=== PATIENT | female | born 1985 | race Caucasian/White ===

== ENCOUNTER 2021-12-10 21:24 | Emergency (ER) | payer OTHER, SELFPAY ==
--- NOTE | ~2021-12-10 | XR_ITS ---
XR chest 2V DATE: 12/10/2021 22:12 INDICATION: Inspiratory chest pain TECHNIQUE: PA and lateral views COMPARISON: 12/02/2019 2 view chest FINDINGS: There is minimal infiltrate or atelectasis in the lower lungs. Normal heart size. No hilar or mediastinal enlargement. No pleural effusion or pulmonary vascular con gestion or pneumothorax. IMPRESSION: Minimal infiltrate or atelectasis in the lower lungs Reviewed, dictated and finalized at location A. [place] STAFF CREDENTIALING COORDINATOR
[2021-12-10 21:43] VITALS: BP 137/78; PULSE 74; RESP 20; TEMP 36.6; O2SAT 100
--- NOTE | 2021-12-10 21:47 | ECG_ITS ---
Measurements Intervals [place] Rate: 59 P: 52 TX: 146 QRS: 30 QRSD: 86 T: 53 QT: 429 QTc: 428 Interpretive Statements SINUS BRADYCARDIA EARLY PRECORDIAL R/S TRANSITION BORDERLINE ECG Electronically Signed On 12-11-2021 6:26:19 SPRINKLER INSPECTOR by Caden Galarza D.O.
[2021-12-10 22:04] LABS: Basophils Percent Auto 0.4 % (0.2-1.2); Eosinophils Absolute Auto 0.2 K/mm3 (0-0.3); Eosinophils Percent Auto 3.1 % (0-4.4); Hematocrit 41.7 % (37.0-47.0); Hemoglobin 14.6 g/dL (12.0-15.0); Immature Granulocyte Absolute 0.01 K/mm3 (0.00-0.031); Immature Granulocyte Percent A 0.2 % (0-0.5); Lymphocytes Percent Auto 46.9 % (18.3-44.2); Mean Corpuscular Hemoglobin 30.9 pg (26-34); Mean Corpuscular Volume 88.2 fl (80-100); Mean Platelet Volume 9.4 fl (7.4-10.4); Monocytes Absolute Auto 0.6 K/mm3 (0.1-0.6); Monocytes Percent Auto 11.3 % (2.6-8.5); Neutrophils Percent Auto 38.1 % (45.5-73.1); Platelet Count Result 158 k/mm3 (150-375); Red Blood Count 4.73 M/mm3 (4.2-5.4); White Blood Count 5.1 K/mm3 (4.5-10.0)
[2021-12-10 22:14] LABS: INR 0.9; Partial Thromboplastin Time 28.3 SECONDS (22.3-36.8); Prothrombin Time 12.4 Seconds (11.1-14.7)
[2021-12-10 22:14] LABS: Alanine Aminotransferase 27 U/L (4-35); Albumin Level 4.2 g/dL (3.5-5.1); Alkaline Phosphatase 51 U/L (38-126); Anion Gap 7 mmol/L (8-16); Aspartate Amino Transferase 34 U/L (14-36); Bilirubin,Total 0.4 mg/dL (0.2-1.3); Blood Urea Nitrogen 14 mg/dL (7-17); Calcium 8.9 mg/dL (8.4-10.2); Carbon Dioxide 27 mmol/L (22-30); Chloride 103 mmol/L (98-107); Estimated CRCL calculation 90 ml/min; Estimated Glomerular Filt Rate > 60; Glucose 96 mg/dL (65-110); Lipase 19 U/L (23-300); Potassium 4.3 mmol/L (3.4-5.0); Sodium 137 mmol/L (137-145)
[2021-12-10 22:26] LABS: Troponin I < 0.012 ng/mL (0.000-0.034)
--- NOTE | 2021-12-11 01:55 | PC.NURSE ---
patient states she does not want to wait any longer and left from waiting room
== END 2021-12-11 01:58 | disposition left against medical advice (07) ==
PROVIDERS: Emergency Provider Emergency Medicine; PCP Nurse Practitioner Family
DX: U07.1 COVID-19 (principal); M54.6 Pain in thoracic spine
CPT/HCPCS: 36415; 71046; 80053; 83690; 84484; 85025; 85610; 85730; 93005; 99199

== ENCOUNTER 2024-12-16 07:48 | Outpatient (CLI) | payer OTHER, MEDICAID, SELFPAY ==
--- OUTSIDE RECORDS SUMMARY | 2024-12-17 21:25 | XMS_ITS | Clinical Summary ---
Author Organization [facility] Address [address] [place] [address] Care Team Providers Care Clinical Nursing Instructor Name Role Phone Unavailable Primary Care Provider Unavailabl e Source Comments [facility],non-owned Affiliates and Associated Physician Practices is amultiple site organization consisting of ambulatory clinics and hospital sitesin [place], [place], [place]. This disclosure is being madepursuant to the Care Everywhere program and may not contain all information available regarding this patient. 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 Immunizations Name Administration Dates Next Due Rho D Immune Globulin 10/24/2015 Social History Tobacco Use Types Packs/Day Years Used Date Smoking Tobacco: Never Assessed Sex and Gender Information Value Date Recorded Sex Assigned at Not on file Gender Identity Not on file Sexual Orientation Not on file Last Filed Vital Signs Vital Sign Reading Time Taken Comments Blood Pressure 115/70 10/24/2015 10:20 AM GEODETIC COMPUTATOR Pulse 96 10/24/2015 10:20 AM GEODETIC COMPUTATOR Temperature - - Respiratory Rate - - Oxygen Saturation - - Inhaled Oxygen Concentration - - Weight - - Height - - Body Mass Index - - Plan of Treatment Health Maintenance Due Date Last Done Comments PAP SMEAR 1985 HIV SCREENING 2000 HEPATITIS C SCREENING 09/08/2003 DTAP/TDAP/TD VACCINES (1 - Tdap) 2004 HEPATITIS B VACCINE (1 of 3 - 19+ 3-dose series) 2004 COVID-19 VACCINE (2023-2 5 season) 2024 INFLUENZA VACCINE (#1) 2024 DEPRESSION SCREENING 11/25/2024 ZOSTER VACCINE (1 of 2) 2035 HIB VACCINE Aged Out No longer eligi ble based on patient's age to complete this topic HPV VACCINE Aged Out No longer eligi ble based on patient's age to complete this topic MENINGOCOCCAL (Group B) VACCINE Aged Out No longer eligible based on patient's age to complete this topic MENINGOCOCCAL VACCINE Aged Out No allie alma eligible based on patient's age to complete this topic PNEUMOCOCCAL VACCINE Aged Out No long er eligible based on patient's age to complete this topic
--- OUTSIDE RECORDS SUMMARY | 2024-12-17 21:25 | XMS_ITS | Data Portability ---
Author Organization [facility] [employer], Main Office Address [address] [place] [address] Assessment Encounter Date Assessment Date Assessment LastModified by Organization Details LastModified Time 09/28/2024 09/28/2024 Time spent with patient included: preparing to see patient by reviewing tests, obtaining and reviewing history, medical examination and evaluation, counseling and educating the patient, ordering medications and tests, documenting clinical information in EHR, independently interpreting results and communicating results to the patient for a total of 40 minutes. [email or web address] Not available 09/28/2024 16:21:39 Plan of Treatment Reminders Order Date Submit Date Provider Last Modified By Organization Details Last Modified Time Details Appointments None recorded. Lab glycohemog lobin, total, blood 2023 024 [facility] (Lab), [address] [place], [address], 4 14:11:23 TSH, serum or plasma 2023 024 [facility] (Lab), [address] [place], [address], 4 14:11:23 T4, free, serum 2023 024 [facility] (Lab), [address] [place], [address], 4 14:11:23 lipid panel, serum 2023 024 [facility] (Lab), [address] [place], [address], 4 14:11:23 CMP, serum or plasma 2023 024 [facility] (Lab), [address] [place], [address], 4 14:11:24 vitamin B12, serum 2023 024 [facility] (Lab), [address] [place], [address], 4 14:11:24 vitamin D, 25-hydroxy , total, serum 2023 [facility] (Lab), [address] [place], [address], 4 14:11:24 growth hormone, serum 2023 024 [facility] (Lab), [address] [place], [address], 4 01:30:06 Referral weight management referral 2023 024 [facility] (Weight Loss Management), [address] [address], [place], [address], 4 08:45:15 Procedures None recorded. Surgeries None recorded. Imaging home sleep study [address] ([facility]), [address] [place], [address], 4 09:39:21 polysomnog marnie, titration study - Please call patient to schedule. 2023 024 [place] [address] [facility] ([facility] [place], [address], 5 16:36:25 Medication Orders furosemide 20 mg tablet 2023 024 [id number], [address] [place], [place], [id number], 4 12:55:18 Mounjaro 2.5 mg/0.5 mL subcutaneo us pen injector 2023 024 allison Arnold [facility] [address], [address] [place], [address], 4 15:34:09 phentermin e 37.5 mg tablet [address] [facility], [address] [place], [place], [id number], 4 08:55:43 Zepbound 2.5 mg/0.5 mL subcutaneo us pen injector [address] [facility]23504, [address] [place], [place], [id number], 14:10:27 furosemide 20 mg tablet 2023 024 [facility] #15772, [address] [place], [place], [id number], 4 09:16:33 ergocalcif wes (vitamin D2) 1,250 mcg (50,000 unit) capsule 2023 [facility] #[id number] [place], [id number], 4 09:16:34 escitalopr am 10 mg tablet 2023 024 [facility] #[id number] [place], [id number], 4 09:16:38 Patient TargetsNo targets recorded. Patient Instructions Encounter Date Encounter Id Patient Instructions Last Modified By Organization Details Last Modified Time 02/17/2024 [id number] Follow up in 3 months and as needed Mounjaro sent to pharmacy Furosemide sent to pharmacy Labs at next visit. Not available 02/17/2024 12:54:40 03/05/2024 [id number] Follow up in 3 months Medication sent to pharmacy Weigh self monthly and notify provider Not available 03/05/2024 09:05:25 05/05/2024 [id number] Follow up in 3 months Obtain labs Referral to weight loss management Not available 05/05/2024 15:45:08 08/17/2024 [id number] Follow up in 3-6 months Tests: Referral: Recommend: Influenza vaccine Tetanus vaccine Not available 08/17/2024 09:16:23 Reason for Referral Weight Management Referral f or Obesity Referring Physician: Erin Moran, Internal Medicine, Encounter Date: 05/05/2024 Results Created Date Observation Date Name Description Value Unit Range Abnormal Flag Note LastModifiedBy Organization Detail LastModifiedTime 09/28/2008/27/2024 home sleep study No observ ation record ed. [facility] [address] [place], [address], 09/28/2024 17:32:24 Result Notes None recorded. Problems Name Problem SNOMED Code Status Onset Date Resolution Date Notes Provider Name and Address Organization Details Recorded Time Lateral epicondyl itis of left humerus 22525595355 9100 Active 2021 Not Available [facility] 4 03:58:09 Vitamin D deficienc y 77474428 Active 2021 Erin Moran APRN [address] [facility] [address], [place], [address] , [facility] [employer] 4 19:24:25 Umbilical hernia 744103447 Active Not Available [facility] 4 03:58:09 Contact dermatiti s 25530531 Active Not Available [facility] 4 03:58:09 Cobalamin deficienc y 815216984 Active 2022 Erin Moran APRN [address], [place], [address] , [employer] 4 19:23:45 Generaliz ed anxiety disorder 90930161 Active 2022 Erin Moran APRN [address], [place], [address] , [employer] 4 19:23:53 Prediabet es 560068308 Completed 202203/04/2024 Erin Moran APRN [address], [place], [address] , [employer] 4 14:24:14 Obesity 195391607 Active 2022 Erin Moran APRN [address], [place], [address] , [employer] 4 19:24:08 Hyperlipi demia 49034107 Active 2022 Erin Moran APRN [address], [place], [address] , [employer] 4 19:24:12 Pain due to varicose veins of lower extremity 161271472 Active 2022 Not Available [facility] 4 03:58:09 Acne 03216941 Active 2022 Not Available [facility] 4 03:58:08 Thyroid nodule 930220576 Active [address], [place], [address] , [employer] 4 19:24:31 Thyroid nodule 469008786 Active 2022 Erin Moran APRN [address], [place], [address] , [employer] 4 19:24:31 Bilateral arthritis of knees 76247723294 15951 Active 2023 Erin Moran APRN [address] [facility] [address], [place], [address] , [facility] [employer] [facility] 09:06:09 Sleep apnea 39525644 Active [address] NP [address] [facility], [address] [address], [place], [address] , [facility] [employer] [facility] 16:11:41 Hypersomn ia 69046881 Active [address] NP [address] [facility], [address] [address], [place], [address] , [facility] [employer] [facility] 16:11:41 Hypersomn ia with sleep apnea 73817414 Active 2023 Magali Anand NP [address] [address], [place], [address] , [facility] [employer] [facility] 4 16:11:41 Notes:Medical History: Acne Anxiety Rhinitis to multiple environmental allergens IgE 30 IU/mL Eosinophils 300/uL COVID infection 11/2021 Mild elevation of right hemidiaphragm Alpha-1 antitrypsin PiMM 163 mg% Nicotine dependence Thyroid cyst Obesity with mild OSAHS, AHI = 4, 08/27/24 Hypertension EF 60% Hyperlipidemia Prediabetes Vit B12 deficiency Vit D insufficiency Left lateral epicondylitis Varicosis Procedure History: Umbilical herniorrhaphy 2015 Tubal ligation 2014 KILEY for cervical ca 2016 Cholecystectomy 2019 Occupational History: [employer] Problem Notes None recorded. Procedures Surgical History Date Name Laterality Status Provider Name and Address Organization Details Recorded Time Hernia Repair completed Not Available [facility] 01/23/2023 17:47:11 total hysterectomy completed Not Available [facility] 01/23/2023 17:47:11 ligation of bilateral fallopian tubes completed Not Available [facility] 01/23/2023 17:47:11 Cholecystectomy completed Not Available [employer] 01/23/2023 17:47:11 Imaging Results Imaging Date Name Status LastModified by [facility] Details LastModified Time 08/27/2024 home sleep study completed [facility] [address] [facility] [place], [address], 09/28/2024 17:32:24 Procedure Notes None recorded. Medical Equipment None Reported. Allergies Allergen ID Allergen Name Allergen Category Reaction Reaction Severity Criticality Documentation Date Start Date Code Code System Note Provider Name and Address Organization Details Recorded Time 82729 hydrocodo ne Not available itching Not available Not available 01/23/2023 5489 RxNorm Not Available [facility] 17:50:27 Medications Name Sig Start Date Stop Date Status Note LastModified by Organization Details LastModified Time cyclobenz aprine 10 mg tablet 04/10 completed Not Available Not Available Not Available amoxicill in 500 mg capsule 12/16 completed Not Available Not Available Not Available bupropion HCl SR 150 mg tablet,12 hr sustained -release 01/31 completed Not Available Not Available Not Available prednison e 10 mg tablet 08/13 completed Not Available Not Available Not Available nicotine 14 mg/24 hr daily transderm al patch RAY 1 PA EXT TO THE SKIN QD 01/31 completed Not Available Not Available Not Available azithromy estefania 250 mg tablet TAKE 2 TABLETS BY MOUTH FOR 1 DAY THEN TAKE 1 TABLET BY MOUTH DAILY FOR 4 DAYS 01/11 completed Not Available Not Available Not Available ibuprofen 800 mg tablet 12/16 completed Not Available Not Available Not Available nystatin 100,000 unit/gram topical ointment RAY EXT AA BID 01/31 completed Not Available Not Available Not Available fluconazo le 150 mg tablet TK 1 T PO NOW. REPEAT DOSE IN 3 DAYS 01/31 completed Not Available Not Available Not Available hydrocodo ne 5 mg-acetam inophen 325 mg tablet 12/28 completed Not Available Not Available Not Available naltrexon e 50 mg tablet 1 tablet by mouth daily active Not Available Not Available No t Available ondansetr on HCl 4 mg tablet 01/27 completed Not Available Not Available Not Available Nifedical XL 30 mg tablet,ex tended release active Not Available Not Available Not Available phentermi ne 37.5 mg tablet TAKE 1 TABLET BY MOUTH EVERY DAY IN THE MORNING 08/17 completed Not Available Not Available Not Available acetamino phen 300 mg-codein e 30 mg tablet 12/16 completed Not Available Not Available Not Available ciproflox acin 500 mg tablet TAKE 1 TABLET BY MOUTH EVERY 12 HOURS FOR 7 DAYS 02/16 completed Not Available Not Available Not Available tramadol 50 mg tablet 12/28 completed Not Available Not Available Not Available triamcino lone acetonide 0.1 % topical cream APPLY A THIN LAYER TO THE AFFECTED AREA(S) BY TOPICAL ROUTE 2 TIMES PER DAY PRN active Not Available Not Available No t Available ketorolac 10 mg tablet 01/11 completed Not Available Not Available Not Available prednison e 10 mg tablets in a dose pack Take 1 tab by mouth, 3 times a day for 3 daysTake 1 tab by mouth 2 times a day for 2 daysTake 1 tab by mouth once a day for 1 day 08/09 completed Not Available Not Available Not Available oxycodone -acetamin ophen 5 mg-325 mg tablet 01/31 completed Not Available Not Available Not Available ofloxacin 0.3 % ear drops 03/04 completed Not Available Not Available Not Available clindamyc in 1 % topical gel APPLY THIN LAYER TOPICALL Y TO THE AFFECTED AREA TWICE DAILY NEEDED 08/15 completed Not Available Not Available Not Available cyanocoba yuni (vit B-12) 500 mcg tablet Take 1 tablet every day by oral route. 02/16 completed Not Available Not Available Not Available Kenalog 10 mg/mL suspensio n for injection In office injectio n administ ered by the provider 08/09 completed [facility]: [phone] Not Available Not Available Not Available ropinirol e 2 mg tablet Take 1 tablet every day by oral route at bedtime. 03/02 completed Not Available Not Available Not Available cyanocoba yuni (vit B-12) 1,000 mcg/mL injection solution Inject 1 mL every month by subcutan eous route. 08/15 completed Not Available Not Available Not Available ferrous sulfate 325 mg (65 mg iron) tablet active Not Available Not Available Not Available hydrochlo rothiazid e 12.5 mg capsule TK 1 C PO QD 01/31 completed Not Available Not Available Not Available gabapenti n 300 mg capsule TK 1 C PO QD HS 01/31 completed Not Available Not Available Not Available furosemid e 20 mg tablet Take 1 tablet every day by oral route as directed . active Not Available Not Available No t Available sodium chloride 0.9 % intraveno us solution 50 mL by intraven . route. 08/01 completed Not Available Not Available Not Available ergocalci ferol (vitamin D2) 1,250 mcg (50,000 unit) capsule Take 1 capsule every week by oral route as directed . active Not Available Not Available No t Available dexametha sone sodium phosphate 4 mg/mL injection solution 4 mg by injectio n route. 08/01 completed Not Available Not Available Not Available ibuprofen 600 mg tablet 12/16 completed Not Available Not Available Not Available methylpre dnisolone 4 mg tablets in a dose pack FOLLOW PACKAGE DIRECTIO NS 08/15 completed Not Available Not Available Not Available albuterol sulfate HFA 90 mcg/actua tion aerosol inhaler INHALE 2 PUFFS BY MOUTH EVERY 4 HOURS NEEDED 06/28 completed Not Available Not Available Not Available Isovue-30 0 61 % intraveno us solution 100 mL by intraven . route. 08/01 completed Not Available Not Available Not Available dicyclomi ne 10 mg capsule 01/31 completed Not Available Not Available Not Available loratadin e 10 mg tablet active Not Available Not Available Not Available naproxen 500 mg tablet 12/16 completed Not Available Not Available Not Available amoxicill in 875 mg-potass ium clavulana te 125 mg tablet TK 1 T PO Q 12 H FOR 7 DAYS 01/31 completed Not Available Not Available Not Available escitalop marnie 10 mg tablet TAKE 1 TABLET BY MOUTH EVERY DAY active Not Available Not Available No t Available Ciprodex 0.3 %-0.1 % ear drops,rose pension 01/31 completed Not Available Not Available Not Available bupropion HCl XL 150 mg 24 hr tablet, extended release 1 tablet by mouth daily active Not Available Not Available No t Available nitrofura ntoin monohydra te/macroc rystals 100 mg capsule TAKE ONE CAPSULE BY MOUTH EVERY 12 HOURS FOR 5 DAYS 01/15 completed Not Available Not Available Not Available Mucus Relief DM 20 mg-400 mg tablet active Not Available Not Available No t Available Oysco 500/D 500 mg-5 mcg (200 unit) tablet TK 1 T PO BID active Not Available Not Available No t Available ropivacai ne (PF) 5 mg/mL (0.5 %) injection solution Take 10 mg by injectio n route. 08/09 completed Not Available Not Available Not Available 28 mg iron-800 mcg tablet active Not Available Not Available Not Available calcium 600 mg (as carbonate )-vitamin D3 20 mcg (800 unit) tablet active Not Available Not Available Not Available Victoza 3-Oziel 0.6 mg/0.1 mL (18 mg/3 mL) subcutane ous pen injector INJECT 1.2 MG UNDER THE SKIN ONCE EVERY DAY. 10/16 completed Not Available Not Available Not Available PrePlus 27 mg iron-1 mg tablet TK 1 T PO QD active Not Available Not Available No t Available Trulicity 1.5 mg/0.5 mL subcutane ous pen injector ADMINIST ER 1.5 MG UNDER THE SKIN EVERY WEEK 08/13 completed Not Available Not Available Not Available Trulicity 0.75 mg/0.5 mL subcutane ous pen injector ADMINIST ER 0.75 MG UNDER THE SKIN EVERY WEEK 08/17 completed Not Available Not Available Not Available Tech[employer] Pen Needle 32 gauge x 5/32 USE TO INJECT INSULIN ONCE EVERY DAY. 10/16 completed Not Available Not Available Not Available COVID-19 test specimen collectio n TEST DIRECTED 10/16 completed Not Available Not Available Not Available Trulicity 3 mg/0.5 mL subcutane ous pen injector ADMINIST ER 0.5 ML UNDER THE SKIN EVERY WEEK 02/12 completed Not Available Not Available Not Available Trulicity 4.5 mg/0.5 mL subcutane ous pen injector INJECT 4.5 MG EVERY WEEK SUBCUTAN EOUSLY 08/17 completed Not Available Not Available Not Available Mounjaro 2.5 mg/0.5 mL subcutane ous pen injector INJECT 1/2(ONE- HALF) ML SUBCUTAN EOUSLY ONCE A WEEK DIRECTED active Not Available Not Available No t Available naltrexon e 4.5 mg capsule Take 2 capsules every day by oral route as directed . 09/07 completed Not Available Not Available Not Available Zepbound 2.5 mg/0.5 mL subcutane ous pen injector Inject 0.5 mL every week by subcutan eous route as directed . 09/02 completed Denied by insuranc e Not Available Not Available Not Available Vitals Date Recorded Body height Body mass index (BMI) Body weight Heart rate Oxygen saturation Oxygen saturation in Arterial blood by Pulse oximetry Body temperature Systolic blood pressure Diastolic blood pressure Provider Name and Address Organization Details Last Updated DateTime 4 170.18 cm 34.1 kg/m2 66789.1 4 g 86 /min 98 % 98 % 97 [degF] 120 mm[Hg] 70 mm[Hg] Deonte Khan CMA [employer] 4 12:34:12 Date Recorded Body height Body mass index (BMI) Body weight Body temperature Heart rate Oxygen saturation Oxygen saturation in Arterial blood by Pulse oximetry Systolic blood pressure Diastolic blood pressure Provider Name and Address Organization Details Last Updated DateTime 4 170.18 cm 35.2 kg/m2 055323. 28 g 96 [degF] 81 /min 98 % 98 % 122 mm[Hg] 80 mm[Hg] Deonte Khan CMA [employer] 4 08:44:29 Date Recorded Body height Body mass index (BMI) Body weight Body temperature Heart rate Oxygen saturation Oxygen saturation in Arterial blood by Pulse oximetry Systolic blood pressure Diastolic blood pressure Provider Name and Address Organization Details Last Updated DateTime 4 170.18 cm 35.1 kg/m2 398084. 69 g 98 [degF] 79 /min 98 % 98 % 108 mm[Hg] 64 mm[Hg] Aliya Singh MA [employer] 4 15:33:43 Date Recorded Body height Body mass index (BMI) Body weight Body temperature Heart rate Oxygen saturation Oxygen saturation in Arterial blood by Pulse oximetry Systolic blood pressure Diastolic blood pressure Provider Name and Address Organization Details Last Updated DateTime 4 170.18 cm 35.1 kg/m2 076329. 69 g 98.7 [degF] 89 /min 96 % 96 % 106 mm[Hg] 70 mm[Hg] Aliya Singh MA [place] [facility] [employer] 4 08:45:08 Date Recorded Body height Body mass index (BMI) Body weight Heart rate Oxygen saturation Oxygen saturation in Arterial blood by Pulse oximetry Systolic blood pressure Diastolic blood pressure Provider Name and Address Organization Details Last Updated DateTime 4 170.18 cm 35.7 kg/m2 206796. 06 g 78 /min 95 % 95 % 110 mm[Hg] 68 mm[Hg] Deonte Khan CMA [place] - [email or web address] 4 16:07:11 Social History Question Answer Notes LastModified by Organization Details LastModified Time Tobacco Smoking Status Current Every Day Smoker Not Available [facility] 01/23/2023 17:47:04 Do You Have An Advance Directive? No MIGRATION.030 [id number] Information not available 01/23/2023 What Is Your Level Of Alcohol Consumption? None MIGRATION.030 [id number] Information not available 01/23/2023 What Is Your Level Of Caffeine Consumption? Moderate Coffee Twice A Day MIGRATION.030 [id number] Information not available 01/23/2023 How Much Tobacco Do You Chew? None MIGRATION.030 018786 Information not available 01/23/2023 In The 14 Days Before Symptom Onset, Have You Had Close Contact With A Laboratory-confi rmed COVID-19 While That Case Was Ill? No MIGRATION.030 [id number] Information not available 01/23/2023 In The 14 Days Before Symptom Onset, Have You Had Close Contact With A Person Who Is Under Investigation For COVID-19 While That Person Was Ill? No MIGRATION.030 [id number] Information not available 01/23/2023 What Type Of Diet Are You Following? CARBOHYDRATE Low Carb MIGRATION.030 [id number] Information not available 01/23/2023 Which Illicit Or Recreational Drugs Have You Used? None MIGRATION.030 [id number] Information not available 01/23/2023 Do You Or Have You Ever Used E-cigarettes Or Vape? Never Used Electronic Cigarettes MIGRATION.030 [id number] Information not available 01/23/2023 What Is The Highest Grade Or Level Of School You Have Completed Or The Highest Degree You Have Received? [id number] MIGRATION.030 [id number] Information not available 01/23/2023 What Is Your Occupation? None MIGRATION.0301 [id number] Information not available 01/23/2023 Have There Been Any Changes To Your Family Or Social Situation? No MIGRATION.0301 [id number] Information not available 01/23/2023 What Is The Fluoride Status Of Your Home? Unknown MIGRATION.0301 [id number] Information not available 01/23/2023 Are There Any Guns Present In Your Home? No MIGRATION.0301 [id number] Information not available 01/23/2023 Do You Use Insect Repellent Routinely? No MIGRATION.0301 [id number] Information not available 01/23/2023 Where Do You Live? [place]LevelHouse MIGRATION.0301 [id number] Information not available 01/23/2023 Do You Have A Medical Power Of Instrument Mechanic? No MIGRATION.0301 [id number] Information not available 01/23/2023 What Was The Date Of Your Most Recent Tobacco Screening? 08/17/2024 Information not available 08/17/2024 How Many Children Do You Have? 3 Information not available 05/05/2024 What Is Your Current Pack Years? 10-19packyears MIGRATION.0301 [id number] Information not available 01/23/2023 Do You Have Any Pets? Yes MIGRATION.0301 [id number] Information not available 01/23/2023 What Is Your Relationship Status? MIGRATION.0301 [id number] Information not available 01/23/2023 Do You Use Your Seat Belt Or Car Seat Routinely? Yes MIGRATION.0301 [id number] Information not available 01/23/2023 Do You Have Smoke And Carbon Monoxide Detectors In Your Home? Yes MIGRATION.0301 [id number] Information not available 01/23/2023 At What Age Did You Start Smoking Tobacco? 25 MIGRATION.0301 [id number] Information not available 01/23/2023 Are You Passively Exposed To Smoke? No MIGRATION.0301 [id number] Information not available 01/23/2023 Do You Or Have You Ever Used Smokeless Tobacco? Never Used Smokeless Tobacco MIGRATION.0301 [id number] Information not available 01/23/2023 Are There Any Smokers In Your House? No MIGRATION.0301 [id number] Information not available 01/23/2023 How Much Tobacco Do You Smoke? 0.25 PPD Less Than 1/2 Pack Information not available 08/17/2024 Do You Feel Stressed (tense, Restless, Nervous, Or Anxious, Or Unable To Sleep At Night)? AO3354-6 MIGRATION.0301 [id number] Information not available 01/23/2023 Do You Use Any Illicit Or Recreational Drugs? No MIGRATION.0301 [id number] Information not available 01/23/2023 Do You Use Sunscreen Routinely? Yes MIGRATION.0301 [id number] Information not available 01/23/2023 How Many Years Have You Smoked Tobacco? 10 MIGRATION.030 [id number] Information not available 01/23/2023 Have You Recently Traveled Abroad? No MIGRATION.030 780614 Information not available 01/23/2023 Do You Have Any Dietary Restrictions? No MIGRATION.030 623809 Information not available 01/23/2023 Do You Or Have You Ever Used Any Other Forms Of Tobacco Or Nicotine? No MIGRATION.030 [id number] Information not available 01/23/2023 Sex: Unknown Functional Status Question Answer Note LastModified by [employer] Details LastModified Time What is your exercise level? Moderate [id number] Information not available 01/23/2023 Mental Status None recorded. Family History Relationship Description Onset Age of this Age Resolved Age Notes LastModified by Organization Details LastModified Time Mother Essential hypertension Not available 11/28/2023 15:56:03 Mother Hyperthyroid ism [email or web address] Not available 02/2024 15:56:03 Mother Diabetes mellitus MIGRATION.840 [id number] Not available 01/23/2023 17:47:12 Maternal Grandmother Diabetes mellitus MIGRATION.312 [id number] Not available 01/23/2023 17:47:12 Maternal Grandmother Essential hypertension [id number] Not available 11/28/2023 15:56:03 Maternal Grandfather Hyperthyroid ism Not available 02/2024 15:56:03 Daughter Asthma [id number] Not available 01/23/2023 17:47:12 Son Asthma [id number] Not available 01/23/2023 17:47:12 Notes:THYROID ISSUES COMMON IN FAMILY Medical History Condition Response CHEST XRAY N KIDNEY STONES N MRSA N CARPAL TUNNEL SYNDROME N HISTORY OF DRUG ABUSE N RADIATION / CHEMOTHERAPY N COPD N BLOOD DISEASES N SURGERY Y MUMPS N BOWEL PROBLEMS N FAILED BACK SYNDROME N STROKE/TIA N THYROID DISEASE N LYMPHEDEMA N ULCERS N OTHER MODALITIES N CERVICALGIA N TB SKIN TEST N MYOCARDIAL INFARCTION N PARAPELGIA N OBESITY N URINARY/BLADDER/KIDNEY PROBLEMS N Increased Urination N INPATIENT PSYCH CARE N CORONARY ARTERY DISEASE (CAD) N MENIERE'S DISEASE N CAROTID STENOSIS N ADDICTION CONCERNS N Impotence N ENDOMETRIOSIS Y PARATHYROID DISEASE N PERIPHERAL VASCULAR DISEASE N MUSCLE,JOINT OR BONE PROBLEMS N DVT N STOMACH ULCERS N GASTROINTESTINAL BLEEDING N BLOOD CLOTS N PAST HISTORY OF VEHICULAR ACCIDENT N Difficulty Urinating N ASTHMA N USE OF NSAIDS N ARTERIAL INSUFFICIENCY N GI PROBLEMS Y CHF N Low Testosterone N VISION/EYE PROBLEMS N MALE HYPOGONADISM N TOURETTE'S N ANXIETY DISORDER N CHRONIC EAR INFECTIONS N BIPOLAR DISORDER N CONDUCT DISORDER N OSTEOARTHRITIS N TUBERCULOSIS N DIVERTICULITIS N SLEEP APNEA N ALLERGIES/HAYFEVER N PROSTATE N HEART ARRHYTHMIA N INSOMNIA N PAST MEDICATION HISTORY N EYE PROBLEMS N EDEMA Y HYPOTHYROIDISM N CONSTIPATION N CAROTID BLOCKAGE N MOOD DISORDER N BACK / NECK PROBLEMS N MIGRAINES N BREAST PROBLEMS N POLYCYSTIC OVARIES N FIBROMYALGIA N OSTEOPOROSIS N PERIPHERAL NEUROPATHY N APPENDICITIS N VON WILLIBRAND'S DISEASE N SEASONAL ALLERGIES N HEARTBURN / REFLUX N PLEURISY N AFIB N ADD/ADHD N Bronchoscopy N AUTISM SPECTRUM DISORDER (ASD) N SLEEP DISORDER N RETINOPATHY N HEADACHES/MIGRAINES N SLEEP STUDY N VASCULAR DISEASE N Blood Disorder N HEART DISEASE/HEART PROBLEMS N MULTIPLE SCLEROSIS N DEVELOPMENTAL OR BEHAVIORAL DISORDERS N CLAUDICATION N PULMONARY FUNCTION TEST N ANESTHESIA COMPLICATIONS N Gall Stones Y ATRIAL FIBRILLATION N PULMONARY EMBOLISM N AUTOIMMUNE DISEASE N NERVE DISEASE N BLINDNESS N RHEUMATIC FEVER N BLADDER PROBLEMS N Enlarged Prostate N OTHER # 1 N POLIO N LUNG DISEASE/DISORDER N Other # 2 N EAR OR HEARING PROBLEMS N PAST SPINAL SURGERY N SCHIZOPHRENIA N FEMALE PROBLEMS / INFECTIONS N DEPRESSION (INCLUDING POST ) N CHEST CT N RENAL INSUFFICIENCY N BENIGN PROSTATIC HYPERPLASIA N MEASLES N HYPOTENSION N GERD/NAUSEA N EXCESSIVE PERSPIRATION N ANEURYSM N USE OF BLOOD THINNERS N SKIN PROBLEMS N EMPHYSEMA N SHORTNESS OF BREATH N GASTROINTESTINAL DISORDER N PTSD N CATARACTS N CONCUSSION OR SPINAL TRAUMA N ERECTILE DYSFUNCTION N VARICOSITIES N NEUROPATHY N INFERTILITY N AIDS/HIV N FRACTURES N CHEMOTHERAPY / RADIATION N LIVER DISEASE N HYPERTENSION N Deficiency N Metal allergy N BLOOD TRANSFUSION N ANEMIA/BLOOD DISORDER N BRONCHITIS N GLAUCOMA N FOOT PROBLEM N HEART VALVE DISORDERS N CHICKENPOX N BACK INJECTIONS N INFECTIOUS DISEASE N ESRD N PAST INTERVENTIONAL PAIN MANAGEMENT HIST ORY N RHEUMATOID ARTHRITIS N HIGH CHOLESTEROL / HYPERLIPIDEMIA Y HYPERTHYROIDISM N UTI N PVD N EATING DISORDER N NEUROLOGICAL PROBLEMS N CHRONIC PAIN SYNDROME N HAVE YOU BEEN HOSPITALIZED OR SEEN IN [facility] ER IN THE PAST YEAR ? N ATHEROSCLEROSIS N BURSITIS N HERNIATED DISC N DIALYSIS N ECZEMA N HISTORY WITH COMPLICATIONS WITH ANESTHES IA ? N PSYCHOSIS N ARTHRITIS N RESPIRATORY PROBLEMS N PAST HISTORY OF FALL N DIABETES, TYPE N BAD TEETH N ENT N POST LAMINECTOMY SYNDROME N HEPATITIS / LIVER DISEASE N PULMONARY DISEASE N GOUT N ALZHEIMER'S DISEASE N PAIN Y FATIGUE N Brain Problems N HERPES N DEMENTIA N SEIZURES/EPILEPSY N PACEMAKER N DIZZINESS N HEAD TRAUMA OR INJURY N KIDNEY DISEASE N SCARLET FEVER N MENTAL DISORDER/ILLNESS N NEUROPSYCHOLOGICAL N CARDIAC ARRHYTHMIA N CANCER: SPECIFY N PNEUMONIA N Gynecological History Statement/Question Response How many live births 4 Abnormal Pap Y Date of Last Mammogram Date of Last Colonoscopy Date of LMP Sexually Active? N Menses Monthly N STIs/STDs N Date of Last Pap Date of Last Pap Smear Current Control Method Hysterectom y Obstetrics History GPAL:G 4 P 4 0 0 4 Type Value Multiple Births 0 Full Term 4 Induced 0 Spontaneous 0 Premature 0 Living 4 Ectopics 0 Total 4 Immunizations Vaccine Type Date Status Note Provider Nam e and Address Organization Details Recorded Time COVID-19, mRNA, LNP-S, PF, 100 mcg/0.5mL dose or 50 mcg/0.25mL dose 2 completed Erin Moran APRN [address], [facility] [address], [place], [address], [employer] [facility] [employer] 05/24/2024 15:27:54 influenza, intradermal, quadrivalent, preservative free 0 completed Erin Moran APRN [address], [facility] [address], [place], [address], [employer] [facility] [employer] 05/24/2024 15:27:54 MMR 7 ricci Moran APRN [address], [address], [place], [address], [employer] [facility] [employer] [facility] 05/24/2024 15:27:54 DTP 6 completed Erin Moran APRN [address], [address], [place], [address], [place] [facility] 05/24/2024 15:27:54 DTP 6 completed Erin Moran CORRECTIONAL SUPERVISOR [address], [address], [place], [address], [place] [facility] 05/24/2024 15:27:54 DTP 7 completed Erin Moran CORRECTIONAL SUPERVISOR [address], [address], [place], [address], [place] [facility] 05/24/2024 15:27:54 DTP 1 completed Erin Moran CORRECTIONAL SUPERVISOR [address], [address], [place], [address], [place] [facility] 05/24/2024 15:27:54 DTP 5 completed Erin Moran CORRECTIONAL SUPERVISOR [address], [address], [place], [address], [place] [facility] 05/24/2024 15:27:54 OPV 6 completed Erin Moran CORRECTIONAL SUPERVISOR [address], [address], [place], [address], [place] [facility] 05/24/2024 15:27:54 OPV 6 completed Erin Moran CORRECTIONAL SUPERVISOR [address], [address], [place], [address], [place] [facility] 05/24/2024 15:27:54 OPV 7 completed Erin Moran CORRECTIONAL SUPERVISOR [address], [address], [place], [address], [place] [facility] 05/24/2024 15:27:54 OPV 1 completed Erin Moran CORRECTIONAL SUPERVISOR [address], [address], [place], [address], [place] [facility] 05/24/2024 15:27:54 OPV 5 completed Erin Moran CORRECTIONAL SUPERVISOR [address], [address], [place], [address], [place] [facility] 05/24/2024 15:27:54 Past Encounters Encounter ID Performer Location Encounter Start Date Encounter Closed Date Diagnosis/Indication Diagnosis SNOMED-CT Code Diagnosis ICD10 Code Diagnosis Note [id number] [facility] [address] [address] [facility] [address] [place] [address] 01/31/2021 00:00:00 01/31/2021 14:38:26 [id number] [facility] [address] [facility] [address] [place] [address] 03/02/2021 00:00:00 03/02/2021 16:22:53 [id number] [facility] Internal [facility] [address] [facility] [address] [place] [address] 05/05/2021 00:00:00 05/05/2021 17:32:16 [id number] [facility] Internal [facility] [address] [facility] [address] [place] [address] 06/02/2021 00:00:00 06/02/2021 19:55:54 [id number] [facility] [address] [facility] [address] [place] [address] 07/07/2021 00:00:00 07/07/2021 15:50:11 [id number] [facility] Prachi nielsen [address] [facility] y , [place] [address] 10/16/2021 00:00:00 10/16/2021 14:22:16 [id number] [facility] [address] [place] [address] [address] [facility] [address] [place] [address] 12/12/2021 00:00:00 12/12/2021 17:17:18 [id number] [facility] Internal [facility] [address] [facility] [address] [place] [address] 01/11/2022 00:00:00 01/11/2022 10:44:15 [id number] [facility] [address] [facility] [address] [place] [address] 02/13/2022 00:00:00 02/13/2022 14:03:57 [id number] [facility] Internal [facility] 15 [address] [facility] [address] [address] 04/10/2022 00:00:00 04/10/2022 12:50:44 [id number] [facility] Internal [facility] [address] [facility] [address] [place] [address] 05/14/2022 00:00:00 05/14/2022 13:22:53 [id number] [facility] [place] [address] [facility] [address] [place] [address] 06/28/2022 00:00:00 06/28/2022 10:18:29 [id number] [facility] Internal [facility] [address] [facility] [address] [address] 08/13/2022 00:00:00 08/13/2022 13:22:13 [id number] [facility] [address] [place] [address] 08/15/2022 00:00:00 08/15/2022 12:43:02 [id number] [facility] [address] [place] [address] 09/03/2022 00:00:00 09/03/2022 11:28:31 [id number] [facility] [address] [facility] [address] [address] 12/17/2022 00:00:00 12/17/2022 17:38:42 [id number] [facility] Internal [facility] [address] [place] [address]., [address] [address] 01/15/2023 00:00:00 01/15/2023 17:24:21 [id number] FELISHA Awad [facility] Internal [facility] [address] [facility]., [facility] [address] [place] [address] 02/12/2023 15:39:59 02/12/2023 15:59:14 Cobalamin deficiency 814184924 E53.8 on PO supplement Generalize d anxiety disorder 94194182 F41.1 on lexapro, she is aware of side effects, risks, benefitsca ll office if any change in mood or behaviorsh e declines psychiatry referral Prediabetes 003673709 R7 3.03 on Trulicity, she is aware of side effects, risks, benefitssh e denies any personal or family history of MTC or MEN II or pancreatit isshe knows to call the office if any severe n/v or abdominal pain will see if we can get this filled for her at a mail order pharmacy Obesity 948213422 E66.9 recommend healthy, well balanced mealsfocus on lean meats, fresh vegetables , fresh fruits, whole grainsredu ce fast/proce ssed foods or eating out to no more than 1-2 times per weekaim to get 30 min of exercise most days of the week- walking is a great choicealso recommend resistance training 2-3 times per weekShe requests to continue phentermin e-she is aware side effects, risks, benefits Hyperlipidemia 88638982 E78.5 no meds, working on lifestyle Pain due t o varicose veins of lower extremity 871925940 I83.819 Now following cardiology - Dr. Petersen/Dr. Taryn pina from themContin ue compressio n stockings Intermitte nt palpitations 986920631 R00.2 now following cardiology - Dr. Coker Vitamin D deficiency 347 65426 E55.9 on supplement Acne 70232884 L70.9 on clindamyci n twice a day as neededSuns mallika recommenda tionsChang e mask daily Adult [facility] th examination 321396295 Z00.01 Depression screening 171 885385 Z13.31 [id number] FELISHA Awad [facility] Internal Med [facility] [address] [facility] [address] [place] [address] 03/19/2023 13:47:07 03/19/2023 14:04:35 Adult health examination 949387725 Z00.01 Cobalamin deficiency 190 051144 E53.8 on PO supplement Generalize d anxiety disorder 90384678 F41.1 on lexapro, she is aware of side effects, risks, benefitsca ll office if any change in mood or behaviorsh e declines psychiatry referral Prediabetes 131162296 R7 3.03 on Trulicity, she is aware of side effects, risks, benefitssh e denies any personal or family history of MTC or MEN II or pancreatit isshe knows to call the office if any severe n/v or abdominal pain Obesity 659577333 E66.9 recommend healthy, well balanced mealsfocus on lean meats, fresh vegetables , fresh fruits, whole grainsredu ce fast/proce ssed foods or eating out to no more than 1-2 times per weekaim to get 30 min of exercise most days of the week- walking is a great choicealso recommend resistance training 2-3 times per weekShe requests to continue phentermin e-she is aware side effects, risks, benefits Hyperlipidemia 66555117 E78.5 no meds, working on lifestyle Pain due t o varicose veins of lower extremity 438484822 I83.819 Now following cardiology - Dr. Petersen/Dr. Taryn pina from themContin ue compressio n stockings Intermitte nt palpitations 656667129 R00.2 now following cardiology - Dr. Coker Vitamin D deficiency 347 90344 E55.9 on supplement Acne 31611046 L70.9 on clindamyci n twice a day as neededSuns crescott recommenda tionsChang e mask daily [id number] RAUL Awad-Princess [facility] Internal Med [facility] [address] [place] [address] 04/26/2023 15:34:00 04/26/2023 15:59:28 Cobalamin deficiency 947307439 E53.8 on PO supplement Generalize d anxiety disorder 12261929 F41.1 on lexapro, she is aware of side effects, risks, benefitsca ll office if any change in mood or behaviorsh e declines psychiatry referral Prediabetes 615539143 R7 3.03 on Trulicity, she is aware of side effects, risks, benefitssh e denies any personal or family history of MTC or MEN II or pancreatit isshe knows to call the office if any severe n/v or abdominal pain Obesity 930653591 E66.9 recommend healthy, well balanced mealsfocus on lean meats, fresh vegetables , fresh fruits, whole grainsredu ce fast/proce ssed foods or eating out to no more than 1-2 times per weekaim to get 30 min of exercise most days of the week- walking is a great choicealso recommend resistance training 2-3 times per week we had a long discussion about nutrition, how to figure out TDEE, and how to work to be in a mild deficit without crash dietingrec ommend TDEEcalcul ator.net to figure out TDEE, aim to get 200-300 cals below TDEE for sustainabl e weight loss, I printed this out for her and we discussed her targetswe discussed the importance of protein, we discussed macros and how to count themthe importance of daily fitness was discussed, including the importance of resistance trainingon line nutrition resources shared with patient 30 min spent with patient, over half spent on counseling Hyperlipidemia 56380534 E78.5 no meds, working on lifestyle Pain due t o varicose veins of lower extremity 824183097 I83.819 Now following cardiology - Dr. Petersen/Dr. Taryn pina from themContin ue compressio n stockings Intermitte nt palpitations 781010687 R00.2 now following cardiology - Dr. Coker Vitamin D deficiency 347 47643 E55.9 on supplement Acne 80686039 L70.9 on clindamyci n twice a day as neededSuns creen recommenda tionsChang e mask daily [id number] Tommy Stacy MD [facility] ENT [place] [address] [place] [address] 08/08/2023 11:47:42 08/08/2023 12:21:55 Thyroid nodule 084284781 E04.1 Dysphagia 75257307 R13.1 0 [id number] FELISHA Awad [facility] Internal Med [facility] [address] [facility] [address] [place] [address] 08/15/2023 11:12:18 08/15/2023 11:40:23 Cobalamin deficiency 680609385 E53.8 on PO supplement Generalize d anxiety disorder 54320808 F41.1 on lexapro, she is aware of side effects, risks, benefitsca ll office if any change in mood or behaviorsh e declines psychiatry referral Prediabetes 821192267 R7 3.03 on Trulicity, she is aware of side effects, risks, benefitssh e denies any personal or family history of MTC or MEN II or pancreatit isshe knows to call the office if any severe n/v or abdominal pain Obesity 768811218 E66.9 recommend healthy, well balanced mealsfocus on lean meats, fresh vegetables , fresh fruits, whole grainsredu ce fast/proce ssed foods or eating out to no more than 1-2 times per weekaim to get 30 min of exercise most days of the week- walking is a great choicealso recommend resistance training 2-3 times per week Previously discussed: we had a long discussion about nutrition, how to figure out TDEE, and how to work to be in a mild deficit without crash dietingrec ommend TDEEcalcul ator.net to figure out TDEE, aim to get 200-300 cals below TDEE for sustainabl e weight loss, I printed this out for her and we discussed her targetswe discussed the importance of protein, we discussed macros and how to count themthe importance of daily fitness was discussed, including the importance of resistance trainingon line nutrition resources shared with patient Hyperlipidemia 28595793 E78.5 no meds, working on lifestyle Pain due t o varicose veins of lower extremity 205101175 I83.819 Now following cardiology - Dr. Petersen/Dr. Taryn pina from themContin ue compressio n stockings Intermitte nt palpitations 210738988 R00.2 now following cardiology - Dr. Coker Vitamin D deficiency 347 20755 E55.9 on supplement Acne 14442362 L70.9 on clindamyci n twice a day as neededSuns mallika recommenda tionsChang e mask daily Pain in pelvis 24921627 R10.2 She is negative for rebound tenderness and she is nontoxic-a ppearing todayWe discussed I think this is a low possibilit y of this being her appendix especially because the pain is more midline, has been going on for few weeks, and feels like previous cystsGet pelvic ultrasound Get appointmen t with gynStrict ER precaution s discussed- if the pain gets worse, she develops any fever, chills, vomiting she is to go to the ER Urinary symptoms 6068519 08 R39.9 Check UA now, then start ciproPush fluidsCall office if no improvemen t after meds [id number] Erin Moran APRN [facility] Internal Med [facility] [address] [place] [address] 1 02/17/2024 12:27:52 02/17/2024 13:41:33 Prediabetes 082945201 R73.03 Obesity 241932272 E66.9 Start Mounjaro Edema of l ower extremity 723982606 R60.0 [id number] Erin Moran APRN [facility] Internal Med [facility] [address] [place] [address] 1 03/05/2024 08:35:31 03/05/2024 09:07:26 Obesity 415529666 E66.9 Start Mounjaro for weight loss [id number] Erin Moran APRN [facility] Internal Med [facility] [address] [place] [address] 1 05/05/2024 15:23:56 05/05/2024 15:50:49 Obesity 616159243 E66.9 [id number] Erin Moran APRN [facility] Internal Med [facility] [address] [place] [address] 1 08/17/2024 08:33:44 08/17/2024 09:18:36 Habitual snoring 520086891 R06.83 Obesity 943340880 E66.9 Edema of l ower extremity 515387784 R60.0 Renewal of prescription 220937932 Z76.0 Vitamin D deficiency 347 48590 E55.9 [id number] Magali Anand NP [facility] [place] [address] 09/28/2024 15:54:37 11/17/2024 11:12:34 Sleep apnea 17261925 G47.30 G47.33 ESS-15Home Sleep study with AHI 4 and supine AHI 17Titratio n study order todayDiscu ssed sleep hygeineAdv ised good sleep habits and patterns:- Set a goal for at least 7 to 8 hours of sleep time per day-Use the bed mainly for sleep and to go to bed only when tired. If unable to fall asleep after 30 minutes, patient should get out of bed but should not engage in any activity that requires sustained mental alertness. -Maintain a bedtime and wake-up time even on weekends or day off of work.-Avoi d excessive naps during the daytime. If a nap is necessary, limit to no more than 30 minutes.-M inimize enviroment al noise, bright lights, and extremties in bedroom temperatur es.-Avoid alcohol, caffeinate d beverages, and nicotine products for at least 6 hours prior to bedtime.-A void strenuous exercise and large meals for at least 4 hours prior to bedtime.-D iscussed reportable signs and symptoms of concern Hypersomni a with sleep apnea 98093256 G47.19 Body mass index 30+ - obesity 933108789 Z68.35 Encourage healthy diet and exercise to improve weightdisc ussed weight effect on sleep and sleep apnea. Health Concerns Section Related Observation LastModified by Organization Detai ls LastModified Time None Recorded Concern Status LastModified by Organization Details LastModified Time None Recorded Advance Directives Directive N: Payers Encounter Date Sequence Insurance Name Policy Number Policy Manucso Covered Member ID Mancuso Member ID Guarantor Name 02/17/2024 1 [facility] (MEDICAID HMO) [id number] Lindaher Nagel [id number] Linda N Nagel 03/05/2024 1 [facility] (MEDICAID HMO) [id number] Linda Nagel [id number] Linda N Nagel 05/05/2024 1 [facility] (MEDICAID HMO) [id number] Linda Nagel [id number] Linda N Nagel 08/17/2024 1 [facility]) [id number] Linda N Nagel [id number] Linda N Nagel 09/28/2024 1 [facility] ([facility]) [id number] Linda N Nagel [id number] Linda N Nagle Notes Date Note Type Note Provider Name and Address Organization Details Recorded Time 02/17/2024 text/html Linda presents today to establish care. She is also wanting continue her weight loss from previous provider. She states that the Trulicity she was previously prescribed is no longer working. She states that she will return to the brush maker for a thyroid nodule. Linda states that her other medical issues have been under control with weight loss. 08/15/2023Linda presents today for follow-up. She reports she has been tolerating the Trulicity well without issue. She reports her mood is stable on the current dose of Lexapro. She feels like this is a good dose for her. She denies any SI or HI today. She has got several symptoms she would like to talk about today. Does have a history of ovarian cyst and she has noted she has had a heavy feeling on the right side of her pelvis for the past 2 or 3 weeks. She reports it is intermittent. She reports it does feel like the last time she had ovarian cyst. She is status post hysterectomy. The ovaries remain. She has not seen a head esthetician in several years. She also reports she has been having some urinary symptoms. She reports she has been having some urinary frequency and burning. She feels like she has to push the urine out when she goes to void. She denies any fever, chills, nausea, or vomiting. Erin Moran APRN [address], [place], [address], [employer] 02/17/2024 12:55:19 03/05/2024 text/html Linda presents today as a follow up and would like to discuss weight loss medications. She has been on trulicity for weight loss, but it was not working. She has been denied for Mounjaro by her insurance. She is asking to start phentermine. Her goal weight is 160lbs. Her currently weight is 225lbs. Erin Moran APRN [address] [facility], [address], [place], [address], [employer] 03/05/2024 09:05:56 05/05/2024 text/html Linda presents today to follow up on weight loss and 3 month follow up. According to records, she has not lost any weight since starting phentermine. 03/05/2024Linda presents today as a follow up and would like to discuss weight loss medications. She has been on trulicity for weight loss, but it was not working. She has been denied for Mounjaro by her insurance. She is asking to start phentermine. Her goal weight is 160lbs. Her currently weight is 225lbs. Erin Gimenezsangita CORRECTIONAL SUPERVISOR [address] [facility], [facility] [address], [place], [address], [employer] 05/05/2024 15:48:38 08/17/2024 text/html Linda presents today for 3 month follow up. She states that the phentermine has not worked for weight loss, she has been able to maintain her weight but not loose anything. She is having knee pain that is causes her not to sleep at night. She states that she goes to the gym 3 times per week. She does not eat fast food, mainly eats chicken and vegetables. 05/05/2024Linda presents today to follow up on weight loss and 3 month follow up. According to records, she has not lost any weight since starting phentermine. 03/05/2024Linda presents today as a follow up and would like to discuss weight loss medications. She has been on trulicity for weight loss, but it was not working. She has been denied for Mounjaro by her insurance. She is asking to start phentermine. Her goal weight is 160lbs. Her currently weight is 225lbs. Erin Moran APRN [address] [facility], [facility] [address], [place], [address], [employer] 08/17/2024 09:16:41 09/28/2024 text/html Obstructive Slee p ApneaReported bypatient.Timing:grad ual Duration:frequent Context:observed apnea; sleep hours per night5 Aggravating Factors:fatigue; nocturia Alleviating Factors:positioning Associated Symptoms:no dysphagia; no night sweats; no impaired work performance; no nasal congestion; no hyponasal speech; no mouth breathing;morning dry mouth;morning headache;postnasal drip;awakening short of breath;daytime sleepiness;suddenly falling asleep during the day;excess napping;loud snoring;gasping for air;witnessed apnea;hyperactivity;p oor concentration;amnesia ;irritability Prior Tests and Treatments:polysomnog kristian; home sleep studyNotes:notes she has gained weightprimary ordered a new home sleep study-here for follow-up for the testingseen in 2021 noted to have mild elevation on right diaphragm Magali Anand, TITA [address], [facility] [address], [place], [address], [place] [employer] [facility] 09/29/2024 08:57:32 OBGyn Episode No OBEpisode recorded.
--- OUTSIDE RECORDS SUMMARY | 2024-12-17 21:25 | XMS_ITS | Patient Health Summary ---
Author Organization [facility] Address [address] [place] [place] [address] Care Team Providers Care Hand Roller Name Role Phone Unavailable Primary Care Provider Unavailabl e Note from [facility],non-owned Affiliates and Associated Physician Practices is amultiple site organization consisting of ambulatory clinics and hospital sitesin [place], [place], [place] and [place]. This disclosure is being madepursuant to the Care Everywhere program and may not contain all information available regarding this patient. Last updated 18.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 Immunizations * Rho D Immune Globulin(Given 10/24/2015) Social History Tobacco Use Types Packs/Day Years Used Date Smoking Tobacco: Never Assessed Sex and Gender Information Value Date Recorded Sex Assigned at Not on file Gender Identity Not on file Sexual Orientation Not on file Last Filed Vital Signs Vital Sign Reading Time Taken Comments Blood Pressure 115/70 10/24/2015 10:20 AM OUTSOLE MOLDER Pulse 96 10/24/2015 10:20 AM OUTSOLE MOLDER Temperature - - Respiratory Rate - - Oxygen Saturation - - Inhaled Oxygen Concentration - - Weight - - Height - - Body Mass Index - - Procedures * LAMELLAR BODY COUNT(Performed 10/24/2015) * LS RATIO AMNIOTIC FLUID(Performed 10/24/2015) * SONOGRAM - COMPLETE(Performed 10/24/2015) Performed for 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 de Phone Number [facility] NON INTERF [address] [place] [address] * LS RATIO FLUID (10/24/2015 9:00 AM OUTSOLE MOLDER) L/S Ratio 2.2 10/24/2015 2:42 PM [facility] Color Fluid Pale Yellow 10/24/2015 2:42 PM [facility] Character Fluid Hazy 10/24/2015 2:42 PM [facility] Gestational Age 37w1d 10/24/2015 2:42 PM [facility] Volume Fluid 12 10/24/2015 2:42 PM [facility] Fluid AMNIOTIC FLUID SPECIMEN / Unknown Collection / Unknown 10/24/2015 9:00 AM OUTSOLE MOLDER 10/24/2015 2:39 PM OUTSOLE MOLDER Narrative [facility] - 10/24/2015 2:42 PM [facility] L/S Ratio Range: Immature ? <=1.5 Transitional ? 1.6-1.9 Mature ? >=2.0 PLEASE NOTE - L/S Ratio correlates with gestational age only in normal pregnancies. ??Abnormalities of , such as Retroplacental Bleeding and Ruptured Membranes, Hypertensive Renal or Cardiovascular Disease, Class D, E, and F Diabetes, and Maternal Hypertension can accelerate L/S Ratio maturation. ??Conversely, delayed maturation of L/S Ratio can be caused by Erythroblastosis Fetalis, Diabetes Mellitus (Class A, B, or C), and Chronic Nonhypertensive Glomerulonephritis. Karlie Winkler MD LAB - BODY FLUID ORD ERABLES Performing Organization Address [facility] Co de Phone Number [facility] [address] [place] [address] * SONOGRAM - COMPLETE (10/24/2015 8:31 AM OUTSOLE MOLDER) Anatomical Region Laterality Modality Other 10/24/2015 8:31 AM OUTSOLE MOLDER Narrative 10/24/2015 10:38 AM OUTSOLE MOLDER ? [facility] ? [facility] ?PHONE: ??FAX: Pat. Name: ?LINDA NAGEL Pat. No: ?[id number] Study Date: ?? 10/24/2015 ??8:31am , Age: ? 1985, 30 Pregnancies: ?? 4, Para 3 Height: ? 67 in Weight: ? 170 lb LMP: ?Unknown GA by US: ? 38w4d GA Selected: ??37w1d (From Known E) GIO: ?11/13/2015 Referring MD: KARLIE WINKLER MD [employer] Supervisor: ??Brandan John RDMS BMI: ?26.62 Hist/Ind: ? Amniocentesis ?History of Preeclampsia x 3 ?History of Labor x 2 ?History of LEEP MEASUREMENTS & AGE ? GROWTH EVALUATION Measurement ??GA ? Range ? Srce %for GA Ratios ----- ---- ------- BPD ??9.5 cm 38w6d (06v0t-60m3p) Hadl BPD 74% FL/BPD 0.77 (0.71 - 0.87) HC ??33.3 cm 38w0d (10v6p-20i5c) Hadl HC ??65% FL/AC ??0.20 (0.20 - 0.24) AC ??36.0 cm 39w6d (35x6l-86d5i) Hadl AC ??91% HC/AC ??0.93 (0.91 - 1.10) FL ?? 7.4 cm 37w5d (22o0p-47g2y) Hadl FL ??58% CI ? 0.82 (0.70 - 0.86) HL ?? 6.3 cm 36w4d (37c1s-77s5h) Daniel HL ??42% GA for sonogram 38w4d (52d4p-42k2p) ?? Weight Estimate: based on (BPD,HC,AC,FL) Avg ?Weight: 3675 gm (3032-2371) Hadlo ? : 8lbs, 1oz ? Normal: 3058 gm (2293- 3822) Hadlo ? Wt% ? 88% for 37w1d Heart Rate: 143 bpm Amniotic Fluid Index: 20.7cm (07.5-24.3) Q1: 6.5cm ??Q2: 5.4cm ??Q3: 3.4cm ??Q4: 5.6cm ?? CLINICAL SUMMARY Study Number: 1 A single fetus is identified in cephalic presentation. ??The measurements today are consistent with appropriate size for the GIO provided. ??The GIO selected is based on her LMP and a prior ultrasound examination (confirmed). ??The amniotic fluid volume is within normal limits. ??The placenta is posterior. ??The anatomy was not well visualized due to positioning and gestational age. ??No major malformations are seen. ??The patient was advised that ultrasound does not allow detection of all structural or chromosomal abnormalities. PROCEDURE: ?? Amniocentesis was performed under direct ultrasound guidance without complications. ??The placenta was not traversed, 12cc's of clear, yellow fluid were obtained and sent for L/S ratio and Lamellar Body studies. ??The heart rate was within normal limits post procedure. ??The maternal Blood type is O-. ??Rhogam was given. IMPRESSION: Single, live, IUP 37w1d Upper normal growth and fluid level. Normal anatomic views within limits of gestational age. Uncomplicated maturity amniocentesis. RECOMMEND: ?? Follow up ultrasound as clinically indicated See consult letter in Epic. Thank you for allowing us the opportunity to care for your patient. Dyan Bhatia MD <Electronic Signature> ??10/24/2015 10:38am Karlie Winkler MD [facility] ORDERABLES * TYPE + SCREEN PANEL (10/24/2015 8:21 AM OUTSOLE MOLDER) ABO O 10/24/2015 8:59 AM OUTSOLE MOLDER [facility] Rh Type Negative 10/24/2015 8:59 AM OUTSOLE MOLDER [facility] Comment:History check perfor med. Retype required. Antibody Screen Negative 10/24/2015 8:59 AM OUTSOLE MOLDER [facility] Miscellaneous samples (specimen) BLOOD SPECIMEN / Unknown Venipuncture / Unknown 10/24/2015 8:21 AM OUTSOLE MOLDER 10/24/2015 8:24 AM OUTSOLE MOLDER Delmy Shipley SMOKE ROOM OPERATOR-FINAL ASSEMBLY WORKER LAB - [facility] D BANK ORDERABLES [facility] [address]
--- OUTSIDE RECORDS SUMMARY | 2024-12-17 21:25 | XMS_ITS | Referral Summary ---
Author Organization [facility] Address [address] [place] [address] Care Team Providers Care Enterprise Systems Engineer Name Role Phone Unavailable Primary Care Provider Unavailabl e Source Comments [facility],non-owned Affiliates and Associated Physician Practices is amultiple site organization consisting of ambulatory clinics and hospital sitesin [place], [place] and [place]. This disclosure is being madepursuant to the Care Everywhere program and may not contain all information available regarding this patient. Last updated 18.[facility] Revizer Allergies Active Allergy Reactions Criticality Noted Date [...] Comments Blood Pressure 115/70 10/24/2015 10:20 AM CONSTRUCTION PIT WORKER Pulse 96 10/24/2015 10:20 AM CONSTRUCTION PIT WORKER Temperature - - Respiratory Rate - - Oxygen Saturation - - Inhaled Oxygen Concentration - - Weight - - Height - - Body Mass Index - - Plan of Treatment Not on file
--- OUTSIDE RECORDS SUMMARY | 2024-12-17 21:25 | XMS_ITS | Data Portability ---
Author Organization [facility] Address [address] [place] [address] Assessment No assessment recorded. Plan of Treatment Reminders Order Date Submit Date Provider Last Modified By Organization Details Last Modified Time Details Appointments None recorded. Lab urinalysi s, dipstick 2017 018 grace In-Office Order, Internal Use Only DO Not Attach Compendium DO Not Attach Compendium, Do Not Delete/merge, [id number] 8 15:18:17 urinalysi s, dipstick 2017 018 grace In-Office Order, Internal Use Only DO Not Attach Compendium DO Not Attach Compendium, Do Not Delete/merge, [id number] 8 16:44:23 test, urine 2017 018 grace In-Office Order, Internal Use Only DO Not Attach Compendium DO Not Attach Compendium, Do Not Delete/merge, [id number] 8 16:44:23 urinalysi s, dipstick 2018 019 [email or web address] 1 In-Office Order, Internal Use Only DO Not Attach Compendium DO Not Attach Compendium, Do Not Delete/merge, [id number] 9 12:46:01 urinalysi s, dipstick 2019 020 [email or web address] 1 In-Office Order, Internal Use Only DO Not Attach Compendium DO Not Attach Compendium, Do Not Delete/merge, [id number] 0 16:49:22 urinalysi s, dipstick 2019 020 [email or web address] 1 In-Office Order, Internal Use Only DO Not Attach Compendium DO Not Attach Compendium, Do Not Delete/merge, [id number] 0 18:17:21 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 Surgeries None recorded. Imaging MAMMO, diagnosti c, digital, bilateral 2018 019 [facility] Add On Lab Orders, [address] [place], [address], 9 12:57:54 Medication Orders methylpre dnisolone 4 mg tablets in a dose pack 2017 018 [place] [address] [id number], [address], [place], [id number], 8 14:48:42 Banophen 25 mg capsule 2017 018 [place] [address] [facility][id number], [address], [place], [id number], 8 14:49:08 gabapenti n 300 mg capsule 2018 019 [id number], [address], [place], [id number], 9 11:07:16 nystatin 100,000 unit/gram topical cream 2019 020 [facility]FACE [facility], [address], [place], [id number], 0 17:15:58 Slynd 4 mg (28) tablet 2019 020 INTERFACE [facility] #52947, [address], [place], [id number], 0 17:15:58 Patient TargetsNo targets recorded. Patient Instructions Encounter Date Encounter Id Patient Instructions Last Modified By Organization Details Last Modified Time 09/29/2019 [id number] restless legs syndrome: care instructions Not available 09/29/2019 11:07:11 nipple discharge : care instructions Not available 09/29/2019 11:07:36 12/02/2019 [id number] hemorrhagic ovarian cyst: care instructions Not available 12/02/2019 18:55:53 learning about acute cholecystitis Not available 12/02/2019 18:55:53 Gallbladder Removal Surgery: What to Expect at Home Not available 12/02/2019 18:55:53 Reason for Referral [facility] Digital Content Specialist Ref erral for Postoperative complication Referring Physician: Brendan Winkler, PERFORMING ARTIST, Encounter Date: 12/18/2017 Results Created Date Observation Date Name Description Value Unit Range Abnormal Flag Note LastModifiedBy Organization Detail LastModifiedTime 01/13/2001/13/2020 urina lysis , dipst ick Leukocytes Negati ve Not Available In-Office Order Internal Use Only DO Not Attach Compendium DO Not Attach Compendium, Do Not Delete/merge, [id number] 01/13/2020 17:14:08 01/13/2001/13/2020 urina lysis , dipst ick Nitrite negati ve Not Available In-Office Order Internal Use Only DO Not Attach Compendium DO Not Attach Compendium, Do Not Delete/merge, [id number] 01/13/2020 17:14:08 01/13/2001/13/2020 urina lysis , dipst ick Urobilinogen .2 Not Available In-Of fice Order Internal Use Only DO Not Attach Compendium DO Not Attach Compendium, Do Not Delete/merge, [id number] 01/13/2020 17:14:08 01/13/20 20 01/13/2020 urina lysis , dipst ick Protein Negati ve Not Available In-Office Order Internal Use Only DO Not Attach Compendium DO Not Attach Compendium, Do Not Delete/merge, [id number] 01/13/2020 17:14:08 01/13/20 20 01/13/2020 urina lysis , dipst ick pH 6.0 Not Available In-Office Order Internal Use Only DO Not Attach Compendium DO Not Attach Compendium, Do Not Delete/merge, 01/13/2020 17:14:08 01/13/20 20 01/13/2020 urina lysis , dipst ick Blood Negati ve Not Available In-Office Order Internal Use Only DO Not Attach Compendium DO Not Attach Compendium, Do Not Delete/merge, 01/13/2020 17:14:08 01/13/20 20 01/13/2020 urina lysis , dipst ick Specific [place] 1.010 Not Available In-Off ice Order Internal Use Only DO Not Attach Compendium DO Not Attach Compendium, Do Not Delete/merge, 01/13/2020 17:14:08 01/13/20 20 01/13/2020 urina lysis , dipst ick Ketone Negati ve Not Available In-Office Order Internal Use Only DO Not Attach Compendium DO Not Attach Compendium, Do Not Delete/merge, 01/13/2020 17:14:08 01/13/20 20 01/13/2020 urina lysis , dipst ick Bilirubin Negati ve Not Available In-Office Order Internal Use Only DO Not Attach Compendium DO Not Attach Compendium, Do Not Delete/merge, 01/13/2020 17:14:08 01/13/20 20 01/13/2020 urina lysis , dipst ick Glucose Negati ve Not Available In-Office Order Internal Use Only DO Not Attach Compendium DO Not Attach Compendium, Do Not Delete/merge, 01/13/2020 17:14:08 12/02/19 20 12/02/2019 urina lysis , dipst ick Leukocytes Negati ve Not Available In-Office Order Internal Use Only DO Not Attach Compendium DO Not Attach Compendium, Do Not Delete/merge, 12/02/2019 15:56:24 12/02/19 20 12/02/2019 urina lysis , dipst ick Nitrite negati ve Not Available In-Office Order Internal Use Only DO Not Attach Compendium DO Not Attach Compendium, Do Not Delete/merge, 12/02/2019 15:56:24 12/02/19 20 12/02/2019 urina lysis , dipst ick Urobilinogen .2 Not Available In-Of fice Order Internal Use Only DO Not Attach Compendium DO Not Attach Compendium, Do Not Delete/merge, 12/02/2019 15:56:24 12/02/19 20 12/02/2019 urina lysis , dipst ick Protein 30 Not Available In-Office Order Internal Use Only DO Not Attach Compendium DO Not Attach Compendium, Do Not Delete/merge, 12/02/2019 15:56:24 12/02/19 20 12/02/2019 urina lysis , dipst ick pH 5.5 Not Available In-Office Order Internal Use Only DO Not Attach Compendium DO Not Attach Compendium, Do Not Delete/merge, 12/02/2019 15:56:24 12/02/19 20 12/02/2019 urina lysis , dipst ick Blood Hemoly zed: Trace Not Available In-Office Order Internal Use Only DO Not Attach Compendium DO Not Attach Compendium, Do Not Delete/merge, 12/02/2019 15:56:24 12/02/19 20 12/02/2019 urina lysis , dipst ick Specific [place] 1.025 Not Available In-Off ice Order Internal Use Only DO Not Attach Compendium DO Not Attach Compendium, Do Not Delete/merge, 12/02/2019 15:56:24 12/02/19 20 12/02/2019 urina lysis , dipst ick Ketone Negati ve Not Available In-Office Order Internal Use Only DO Not Attach Compendium DO Not Attach Compendium, Do Not Delete/merge, 12/02/2019 15:56:24 12/02/19 20 12/02/2019 urina lysis , dipst ick Bilirubin Small Not Available In-Offic e Order Internal Use Only DO Not Attach Compendium DO Not Attach Compendium, Do Not Delete/merge, 12/02/2019 15:56:24 12/02/19 20 12/02/2019 urina lysis , dipst ick Glucose Negati ve Not Available In-Office Order Internal Use Only DO Not Attach Compendium DO Not Attach Compendium, Do Not Delete/merge, [id number] 12/02/2019 15:56:24 09/29/20 19 09/29/2019 urina lysis , dipst ick Leukocytes Negati ve Not Available In-Office Order Internal Use Only DO Not Attach Compendium DO Not Attach Compendium, Do Not Delete/merge, [id number] 09/29/2019 10:35:46 09/29/20 19 09/29/2019 urina lysis , dipst ick Nitrite negati ve Not Available In-Office Order Internal Use Only DO Not Attach Compendium DO Not Attach Compendium, Do Not Delete/merge, [id number] 09/29/2019 10:35:46 09/29/20 19 09/29/2019 urina lysis , dipst ick Urobilinogen .2 Not Available In-Of fice Order Internal Use Only DO Not Attach Compendium DO Not Attach Compendium, Do Not Delete/merge, [id number] 09/29/2019 10:35:46 09/29/20 19 09/29/2019 urina lysis , dipst ick Protein Negati ve Not Available In-Office Order Internal Use Only DO Not Attach Compendium DO Not Attach Compendium, Do Not Delete/merge, [id number] 09/29/2019 10:35:46 09/29/20 19 09/29/2019 urina lysis , dipst ick pH 6.0 Not Available In-Office Order Internal Use Only DO Not Attach Compendium DO Not Attach Compendium, Do Not Delete/merge, [id number] 09/29/2019 10:35:46 09/29/20 19 09/29/2019 urina lysis , dipst ick Blood Negati ve Not Available In-Office Order Internal Use Only DO Not Attach Compendium DO Not Attach Compendium, Do Not Delete/merge, [id number] 09/29/2019 10:35:46 09/29/20 19 09/29/2019 urina lysis , dipst ick Specific [place] 1.015 Not Available In-Off ice Order Internal Use Only DO Not Attach Compendium DO Not Attach Compendium, Do Not Delete/merge, [id number] 09/29/2019 10:35:46 09/29/20 19 09/29/2019 urina lysis , dipst ick Ketone Negati ve Not Available In-Office Order Internal Use Only DO Not Attach Compendium DO Not Attach Compendium, Do Not Delete/merge, [id number] 09/29/2019 10:35:46 09/29/20 19 09/29/2019 urina lysis , dipst ick Bilirubin Negati ve Not Available In-Office Order Internal Use Only DO Not Attach Compendium DO Not Attach Compendium, Do Not Delete/merge, 09/29/2019 10:35:46 09/29/20 19 09/29/2019 urina lysis , dipst ick Glucose Negati ve Not Available In-Office Order Internal Use Only DO Not Attach Compendium DO Not Attach Compendium, Do Not Delete/merge, 09/29/2019 10:35:46 12/18/19 18 12/18/2017 urina lysis , dipst ick Leukocytes Small Not Available In-Offi ce Order Internal Use Only DO Not Attach Compendium DO Not Attach Compendium, Do Not Delete/merge, 12/18/2017 10:48:43 12/18/19 18 12/18/2017 urina lysis , dipst ick Nitrite negati ve Not Available In-Office Order Internal Use Only DO Not Attach Compendium DO Not Attach Compendium, Do Not Delete/merge, 12/18/2017 10:48:43 12/18/19 18 12/18/2017 urina lysis , dipst ick Urobilinogen .2 Not Available In-Of fice Order Internal Use Only DO Not Attach Compendium DO Not Attach Compendium, Do Not Delete/merge, 12/18/2017 10:48:43 12/18/19 18 12/18/2017 urina lysis , dipst ick Protein Negati ve Not Available In-Office Order Internal Use Only DO Not Attach Compendium DO Not Attach Compendium, Do Not Delete/merge, 12/18/2017 10:48:43 12/18/19 18 12/18/2017 urina lysis , dipst ick pH 6.0 Not Available In-Office Order Internal Use Only DO Not Attach Compendium DO Not Attach Compendium, Do Not Delete/merge, 12/18/2017 10:48:43 12/18/19 18 12/18/2017 urina lysis , dipst ick Blood Small Not Available In-Office Order Internal Use Only DO Not Attach Compendium DO Not Attach Compendium, Do Not Delete/merge, 12/18/2017 10:48:43 12/18/19 18 12/18/2017 urina lysis , dipst ick Specific [place] 1.020 Not Available In-Off ice Order Internal Use Only DO Not Attach Compendium DO Not Attach Compendium, Do Not Delete/merge, 12/18/2017 10:48:43 12/18/19 18 12/18/2017 urina lysis , dipst ick Ketone Trace Not Available In-Office Order Internal Use Only DO Not Attach Compendium DO Not Attach Compendium, Do Not Delete/merge, 12/18/2017 10:48:43 12/18/19 18 12/18/2017 urina lysis , dipst ick Bilirubin Negati ve Not Available In-Office Order Internal Use Only DO Not Attach Compendium DO Not Attach Compendium, Do Not Delete/merge, 12/18/2017 10:48:43 12/18/19 18 12/18/2017 urina lysis , dipst ick Glucose Negati ve Not Available In-Office Order Internal Use Only DO Not Attach Compendium DO Not Attach Compendium, Do Not Delete/merge, 12/18/2017 10:48:43 01/20/20 18 01/20/2018 pregn alton test, urine HCG negati ve Not Available In-Office Order Internal Use Only DO Not Attach Compendium DO Not Attach Compendium, Do Not Delete/merge, 01/20/2018 14:50:23 01/20/20 18 01/20/2018 urina lysis , dipst ick Leukocytes Small Not Available In-Offi ce Order Internal Use Only DO Not Attach Compendium DO Not Attach Compendium, Do Not Delete/merge, 01/20/2018 14:49:22 01/20/20 18 01/20/2018 urina lysis , dipst ick Nitrite negati ve Not Available In-Office Order Internal Use Only DO Not Attach Compendium DO Not Attach Compendium, Do Not Delete/merge, 01/20/2018 14:49:22 01/20/20 18 01/20/2018 urina lysis , dipst ick Urobilinogen .2 Not Available In-Of fice Order Internal Use Only DO Not Attach Compendium DO Not Attach Compendium, Do Not Delete/merge, 01/20/2018 14:49:22 01/20/20 18 01/20/2018 urina lysis , dipst ick Protein Negati ve Not Available In-Office Order Internal Use Only DO Not Attach Compendium DO Not Attach Compendium, Do Not Delete/merge, 01/20/2018 14:49:22 01/20/20 18 01/20/2018 urina lysis , dipst ick pH 6.0 Not Available In-Office Order Internal Use Only DO Not Attach Compendium DO Not Attach Compendium, Do Not Delete/merge, 01/20/2018 14:49:22 01/20/20 18 01/20/2018 urina lysis , dipst ick Blood Non-He molyze d: Trace Not Available In-Office Order Internal Use Only DO Not Attach Compendium DO Not Attach Compendium, Do Not Delete/merge, 01/20/2018 14:49:22 01/20/20 18 01/20/2018 urina lysis , dipst ick Specific [place] 1.005 Not Available In-Off ice Order Internal Use Only DO Not Attach Compendium DO Not Attach Compendium, Do Not Delete/merge, 01/20/2018 14:49:22 01/20/20 18 01/20/2018 urina lysis , dipst ick Ketone Negati ve Not Available In-Office Order Internal Use Only DO Not Attach Compendium DO Not Attach Compendium, Do Not Delete/merge, 01/20/2018 14:49:22 01/20/20 18 01/20/2018 urina lysis , dipst ick Bilirubin Negati ve Not Available In-Office Order Internal Use Only DO Not Attach Compendium DO Not Attach Compendium, Do Not Delete/merge, 01/20/2018 14:49:22 01/20/20 18 01/20/2018 urina lysis , dipst ick Glucose Negati ve Not Available In-Office Order Internal Use Only DO Not Attach Compendium DO Not Attach Compendium, Do Not Delete/merge, [id number] 01/20/2018 14:49:22 01/20/20 18 01/20/2018 urina lysis , dipst ick Appearance Clear Not Available In-Offi ce Order Internal Use Only DO Not Attach Compendium DO Not Attach Compendium, Do Not Delete/merge, [id number] 01/20/2018 14:49:22 01/20/20 18 01/20/2018 urina lysis , dipst ick Color Yellow Not Available In-Office Order Internal Use Only DO Not Attach Compendium DO Not Attach Compendium, Do Not Delete/merge, [id number] 01/20/2018 14:49:22 10/02/20 19 10/02/2019 MAMMO , diagn ostic , digit al, bilat eral No observ ation record ed. [facility] (Imaging) [address] [place], [address], 12/02/2019 18:32:36 10/05/20 19 10/05/2019 imagi ng/di agnos tic resul t No observ ation record ed. [facility] (Imaging) [address] [place], [address], 12/02/2019 18:32:35 12/01/19 20 11/27/2019 CT, abdom en + pelvi s, w/o contr ast No observ ation record ed. Not Available 06/2020 18:32:35 12/01/19 20 11/27/2019 US, abdom en + pelvi s No observ ation record ed. Not Available 06/2020 18:32:35 Result Notes None recorded. Problems Name Problem SNOMED Code Status Onset Date Resolution Date Notes Provider Name and Address Organization Details Recorded Time Postopera tive complicat ion 843173145 Active 2017 Brendan Winkler joanna [place] - [facility] 8 11:16:44 Macular eruption 425215561 Completed 201709/29/2019 ABHI ARSHAD Attn: Tobi xie,[address] [facility], [place], [address], [place] - [facility] 9 10:48:57 Cervicova ginal cytology: Low grade squamous intraepit helial lesion 297309612 Active Mya White [place] null, [place] - [facility] 6 17:44:57 Pain in pelvis 94909645 Completed 09/29/2019 ABHI ARSHAD Attn: Tobi xie,[address] [facility], [place], [address], [place] [facility] 9 10:48:53 Urethriti s 75955844 Completed 09/29/2019 ABHI ARSHAD Attn: Tobi xie,[address] [facility], [place], [address], [place] [facility] 9 10:48:50 Previous operation to cervix affecting Active Brendan W[place] [facility] 6 17:25:51 Vitamin D deficienc y 51333592 Active Brendan [place] [facility] 6 17:25:51 Previous operation to cervix affecting Completed Brendan [place] [facility] 6 17:07:53 Vitamin D deficienc y 50302219 Completed Brendan [place] [facility] 6 17:07:53 Smoker 82738610 Active pt states stopped smoking @ 10 weeks Brendan W[place] [facility] 6 17:25:51 Smoker 32635291 Completed pt states stopped smoking @ 10 weeks Brendan W[place] [facility] 6 17:07:53 Sinusitis 23906748 Completed 09/29/2019 ABHI ARSHAD Attn: Tobi xie,[address] [facility], [place], [address], [place] [facility] 9 10:48:46 Sinusitis 50014542 Completed Brendan [place] [facility] 6 17:07:53 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 529339202 Completed Brendan marshall[place] [facility] 6 17:07:53 Premature labor 2450731 Active Brendan marshall[place] [facility] 6 17:25:51 Premature labor 6423369 Completed Brendan [place]all[place] [facility] 6 17:07:53 Transient hypertens ion of 145894687 Active Brendan marshall[place] [facility] 6 17:25:51 Transient hypertens ion of 778441439 Completed Brendan marshall[place] [facility] 6 17:07:53 Postpartu [facility] 28498855 Completed 09/29/2019 ABHI ARSHAD Attn: Tobi xie,[address] [place], [address], [place] - [facility] 9 10:48:38 Postpartu [facility] 35169376 Completed Brendan marshall[place] [facility] 6 17:07:53 Umbilical hernia 185655872 Active Brendan marshall[place] [facility] 6 17:25:51 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 Procedures Surgical History Date Name Laterality Status Provider Name and Address Organization Details Recorded Time 12/22/19 20 cholecystectomy completed Courtney Jackson MA [place] - [place] 01/12/2020 16:34:54 12/06/19 18 Total hysterectomy completed Courtney Jackson MA [place] - [facility] 12/02/2019 15:55:57 10/29/20 17 Date of Last Pap Smear completed Pamela Bustos MA [place] - [facility] 01/20/2018 14:49:30 02/22/20 16 Colposcopy completed Brendan Winkler [place] - [place] 02/22/2016 16:43:18 11/03/20 14 LEEP completed Sahara Magdaleno LPN [place] - [place] 11/24/2014 15:08:44 Hernia Repair completed Tara Ruffin MA [place] - [facility] 04/29/2017 15:36:57 Tubal Ligation completed Tara Ruffin MA [place] - [place] 04/29/2017 15:37:10 Imaging Results Imaging Date Name Status LastModified by Organiz ation Details LastModified Time 10/02/2019 MAMMO, diagnostic, digital, [facility] [address] [facility] [address] [place], [address], 12/02/2019 18:32:36 10/05/2019 imaging/diagno stic result completed [address] (Imaging) [address] [place], [address], 12/02/2019 18:32:35 11/27/2019 CT, abdomen + pelvis, w/o contrast [place] [address] Information not available 12/02/2019 18:32:35 11/27/2019 US, abdomen + [facility] not available 12/02/2019 18:32:35 Procedure Notes None recorded. Medical Equipment None Reported. Allergies Allergen ID Allergen Name Allergen Category Reaction Reaction Severity Criticality Documentation Date Start Date Code Code System Note Provider Name and Address Organization Details Recorded Time [id number] chloroxyl enol medicatio n rash moderate Not available 01/12/2020 74742 RxNorm [place] g[place] Not Available Not Available Not Available [id number] oxycodone medicatio n itching severe Not available 03/03/20152014 7804 RxNorm Not Available Not Available Not Available Medications Name Sig Start Date Stop Date Status Note LastModified by Organization Details LastModified Time plus 27-1 mg tabs active Not Available Not Available Not Available ciprofloxac n tab 500mgciprof loxacin hcl active Not Available Not Available Not Available azithromyci n tab 250mgazithr omycin active Not Available Not Available Not Available naproxen tab 500mgnaprox en active Not Available Not Available Not Available bupropn hcl tab 300mg xlbupropion hcl xl active Not Available Not Available Not Available metronidazo l tab 500mgmetron idazole active Not Available Not Available Not Available loratadine tab 10mgloratad ine active Not Available Not Available Not Available preplus 27-1 mg tabs active Not Available Not Available Not Available prenat plus tab 27-1mgprena rob plus active Not Available Not Available Not Available tramadol hcl tab 50mgtramado l hcl active Not Available Not Available Not Available nifedical xl 30 mg tb24 active Not Available Not Available Not Available oxycod/apap tab 5-325mgoxyc odone/aceta minophen active Not Available Not Available Not Available multivitami n tablet Take 1 tablet every day by oral route. 09/29 completed Not Available Not Available Not Available Prometrium 200 mg capsule Take 1 capsule twice a day by oral route. 2014 active Not Available Not Available Not Avai april cyclobenzap rine 10 mg tablet 10/29 completed Not Available Not Available Not Available amoxicillin 500 mg capsule 09/29 completed Not Available Not Available Not Available bupropion HCl SR 150 mg tablet,12 hr sustained-r elease active Not Available Not Available Not Available nicotine 14 mg/24 hr daily transdermal patch active Not Available Not Available Not Available azithromyci n 250 mg tablet TAKE 2 TABLETS (500 MG) BY ORAL ROUTE ONCE DAILY FOR 1 DAY THEN 1 TABLET (250 MG) BY ORAL ROUTE ONCE DAILY FOR 4 DAYS active Not Available Not Available No t Available ibuprofen 800 mg tablet TAKE 1 TABLET BY MOUTH THREE TIMES DAILY NEEDED FOR CRAMPS 12/02 completed Not Available Not Available Not Available hydrocodone 5 mg-acetamin ophen 325 mg tablet active Not Available Not Available No t Available Celestone Soluspan 6 mg/mL suspension for injection Take 2 mL every day by injection route for 2 days. 2014 active Not Available Not Available Not Avai lable ondansetron HCl 4 mg tablet active Not Available Not Available Not Available Nifedical XL 30 mg tablet,exte nded release Take 1 tablet twice a day by oral route. active Not Available Not Available No t Available acetaminoph en 300 mg-codeine 30 mg tablet 12/02 completed Not Available Not Available Not Available ciprofloxac in 500 mg tablet Take 1 tablet every 12 hours by oral route. active Not Available Not Available No t Available sulfamethox azole 800 mg-trimetho prim 160 mg tablet 10/29 completed Not Available Not Available Not Available tramadol 50 mg tablet active Not Available Not Available No t Available Vitamin tablet Take 1 tablet every day by oral route as directed. 12/18 completed Not Available Not Available Not Available oxycodone-a cetaminophe n 5 mg-325 mg tablet Take 1 tablet every 6 hours by oral route. active Not Available Not Available No t Available famotidine 20 mg tablet 09/29 completed Not Available Not Available Not Available cephalexin 500 mg capsule 01/20 completed Not Available Not Available Not Available ferrous sulfate 325 mg (65 mg iron) tablet Take 1 tablet twice a day by oral route. 10/29 completed Not Available Not Available Not Available nystatin 100,000 unit/gram topical cream APPLY TO THE AFFECTED AREA(S) BY TOPICAL ROUTE 2 TIMES PER DAY 2019 active Not Available Not Available Not Avai lable hydrochloro thiazide 12.5 mg capsule active Not Available Not Available Not Available gabapentin 300 mg capsule Take 1 capsule every day by oral route at bedtime. active Not Available Not Available No t Available Banophen 25 mg capsule Take 1 capsule every 8 hours by oral route. 01/20 completed Not Available Not Available Not Available ibuprofen 600 mg tablet active Not Available Not Available Not Available methylpredn isolone 4 mg tablets in a dose pack Take 1 tablet every day by oral route for 7 days. active Not Available Not Available No t Available ondansetron 4 mg disintegrat ing tablet 10/29 completed Not Available Not Available Not Available dicyclomine 10 mg capsule active Not Available Not Available Not Available loratadine 10 mg tablet Take 1 tablet every day by oral route. active Not Available Not Available No t Available naproxen 500 mg tablet active Not Available Not Available Not Available amoxicillin 875 mg-potassiu m clavulanate 125 mg tablet active Not Available Not Available Not Available Ventolin HFA 90 mcg/actuati on aerosol inhaler 01/20 completed Not Available Not Available Not Available Microgestin Fe 1.5/30 (28) 1.5 mg-30 mcg (21)/75 mg (7) tablet Take 1 tablet every day by oral route. 10/29 completed Not Available Not Available Not Available Wellbutrin XL 300 mg 24 hr tablet, extended release 1qd for smoking cessation 2014 active Not Available Not Available Not Avai april Mucus Relief DM 20 mg-400 mg tablet active Not Available Not Available No t Available Oysco 500/D 500 mg-5 mcg (200 unit) tablet 10/29 completed Not Available Not Available Not Available 28 mg iron-800 mcg tablet 10/29 completed Not Available Not Available Not Available calcium 600 mg (as carbonate)- vitamin D3 20 mcg (800 unit) tablet Take 1 tablet twice a day by oral route for 30 days. 10/29 completed Not Available Not Available Not Available PrePlus 27 mg iron-1 mg tablet 12/18 completed Not Available Not Available Not Available Slynd 4 mg (28) tablet Take 1 tablet every day by oral route. 2019 active Not Available Not Available Not Avbrianna chen Vitals Date Recorded Body height Provider Name an d Address Organization Details Last Updated DateTime 12/18/2017 170.18 cm Tara Ruffin [place] [facility] [address] 12/18/2017 10:45:21 Date Recorded Body mass index (BMI) Body weight Provider Name and Address Organization Details Last Updated DateTime 12/18/2017 34 kg/m2 28930.54 g Tara Ruffin MA [facility] [address] 10:46:34 Date Recorded Body height Provider Name an d Address Organization Details Last Updated DateTime 01/20/2018 170.18 cm SELMA Kaiser [facility] 2017 14:48:02 Date Recorded Body mass index (BMI) Body weight Provider Name and Address Organization Details Last Updated DateTime 01/20/2018 34.1 kg/m2 72367.14 g Pamela Bustos MA [facility] [address] 01/20/2018 14:48:16 Date Recorded Body height Provider Name an d Address Organization Details Last Updated DateTime 09/29/2019 170.18 cm Courtney Jackson MA [facility] [address] 09/29/20 19 10:30:51 Date Recorded Body mass index (BMI) Body weight Provider Name and Address Organization Details Last Updated DateTime 09/29/2019 40.9 kg/m2 437453.61 g Courtney RegangsSELMA [facility] [address] 09/29/2019 10:30:56 Date Recorded Heart rate Provider Name an d Address Organization Details Last Updated DateTime 09/29/2019 90 /min Courtney Jackson MA [facility] [address] 09/29/20 19 10:41:50 Date Recorded Body temperature Provider Name a nd Address Organization Details Last Updated DateTime 09/29/2019 98.2 [degF] Courtney Jackson MA [facility] [address] 019 10:41:57 Date Recorded Oxygen saturation Oxygen saturation in Arterial blood by Pulse oximetry Provider Name and Address Organization Details Last Updated DateTime 09/29/2019 97 % 97 % Courtney Jackson MA [facility] [address] 09/29/2019 10:42:04 Date Recorded Body height Provider Name an d Address Organization Details Last Updated DateTime 12/02/2019 170.18 cm Courtney Jackson MA [facility] [address] 12/02/19 20 15:53:22 Date Recorded Body mass index (BMI) Body weight Provider Name and Address Organization Details Last Updated DateTime 12/02/2019 40.9 kg/m2 960926.61 g Courtney Jackson MA [facility] [address] 12/02/2019 15:53:30 Date Recorded Heart rate Provider Name an d Address Organization Details Last Updated DateTime 12/02/2019 102 /min Courtney Jackson SELMA [facility] 12/02/19 20 15:59:55 Date Recorded Body temperature Provider Name a nd Address Organization Details Last Updated DateTime 12/02/2019 98.4 [degF] Courtney Jackson MA [facility] [address] 020 15:59:59 Date Recorded Oxygen saturation Oxygen saturation in Arterial blood by Pulse oximetry Provider Name and Address Organization Details Last Updated DateTime 12/02/2019 97 % 97 % Courtney Jackson MA [facility] 12/02/2019 16:00:04 Date Recorded Body height Provider Name an d Address Organization Details Last Updated DateTime 01/12/2020 170.18 cm Courtney Jackson MA [facility] [address] 01/12/20 20 16:33:35 Date Recorded Body mass index (BMI) Body weight Provider Name and Address Organization Details Last Updated DateTime 01/12/2020 40 kg/m2 588605.34 g Courtney Jackson MA [facility] [address] 01/12/2020 16:33:43 Date Recorded Heart rate Provider Name an d Address Organization Details Last Updated DateTime 01/12/2020 85 /min Courtney Jackson MA [facility] 01/12/20 20 16:38:31 Date Recorded Body temperature Provider Name a nd Address Organization Details Last Updated DateTime 01/12/2020 98.5 [degF] Courtney Jackson MA [facility] 020 16:38:35 Date Recorded Oxygen saturation Oxygen saturation in Arterial blood by Pulse oximetry Provider Name and Address Organization Details Last Updated DateTime 01/12/2020 96 % 96 % Courtney Jackson MA [facility] 01/12/2020 16:38:43 Date Recorded Systolic blood pressure Diastolic blood pressure Provider Name and Address Organization Details Last Updated DateTime 12/18/2017 122 mm[Hg] 90 mm[Hg] Tara SELMA Ruffin [facility] 12/18/2017 10:46:37 Date Recorded Systolic blood pressure Diastolic blood pressure Provider Name and Address Organization Details Last Updated DateTime 01/20/2018 124 mm[Hg] 84 mm[Hg] Pamela Bustos MA [facility] 01/20/2018 14:51:27 Date Recorded Systolic blood pressure Diastolic blood pressure Provider Name and Address Organization Details Last Updated DateTime 09/29/2019 116 mm[Hg] 72 mm[Hg] Courtney Jackson MA [facility] 09/29/2019 10:41:46 Date Recorded Systolic blood pressure Diastolic blood pressure Provider Name and Address Organization Details Last Updated DateTime 12/02/2019 112 mm[Hg] 82 mm[Hg] Courtney Jackosn MA [facility] 12/02/2019 15:59:51 Date Recorded Systolic blood pressure Diastolic blood pressure Provider Name and Address Organization Details Last Updated DateTime 01/12/2020 110 mm[Hg] 76 mm[Hg] Courtney Jackson [place] [facility] 01/12/2020 16:38:22 Social History Question Answer Notes LastModified by Organization Details LastModified Time Tobacco Smoking Status Current Every Day Smoker Courtney Jackson [place] null, [place] [facility] 09/29/2019 10:33:10 Do You Have An Advance Directive? No Information not available 03/03/2015 What Is Your Level Of Alcohol Consumption? None Information not available 03/03/2015 If You Are , What Was Your Level Of Alcohol Consumption Prior To ? None Information not available 10/04/2015 Is Anesthesia Consult Planned? Yes Information not available 10/04/2015 Plan Yes MIL With PPTL Information not available 10/04/2015 Is Blood Transfusion Acceptable In An Emergency? Yes Information not available 03/03/2015 What Is Your Level Of Caffeine Consumption? Occasional Information not available 10/04/2015 Live With Cats/exposure To Cat Litter Yes Information not available 10/04/2015 How Much Tobacco Do You Chew? None Information not available 03/03/2015 Are You Currently Employed? No Information not available 03/03/2015 What Type Of Diet Are You Following? REGULAR Information not available 03/03/2015 Do You Or Have You Ever Used E-cigarettes Or Vape? 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 No Information not available 10/04/2015 Frequent Air Travel No Information not available 10/04/2015 Illicit Drugs Pre- None Information not available 10/04/2015 Live Alone Or With Others? With Others Information not available 03/03/2015 Marital Status Informatio n not available 10/04/2015 What Was The Date Of Your Most Recent Tobacco Screening? 09/29/2019 Information not available 09/29/2019 How Many Children Do You Have? 4 Information not available 09/29/2019 Performs Monthly Self-breast Exam? Yes Information not available 03/03/2015 Do You Use Protection During Sex? Usually Information not available 03/03/2015 What Is Your Relationship Status? Domestic Partner Information not available 03/03/2015 Seat Belts Used Routinely Yes Information not available 03/03/2015 Are You Sexually Active? Yes Information not available 03/03/2015 Do You Have Smoke And Carbon Monoxide Detectors In Your Home? Yes Information not available 10/04/2015 At What Age Did You Start Smoking Tobacco? 2006 Quit During Information not available 09/29/2019 Are You Passively Exposed To Smoke? No Information not available 10/04/2015 Do You Or Have You Ever Used Smokeless Tobacco? Never Used Smokeless Tobacco Information not available 09/29/2019 How Much Tobacco Do You Smoke? 0.25 PPD Information not available 09/29/2019 Smoking Pre- .5 PPD Information not available 10/04/2015 General Stress Level Low [email or web address] Information not available 02/22/2016 Do You Use Sunscreen Routinely? Yes Information not available 03/03/2015 On What Date Was Tobacco Cessation Counseling Provided? 09/29/2019 Information not available 09/29/2019 How Many Years Have You Smoked Tobacco? 9 [email or web address] Information not available 10/18/2014 Sex: Unknown Functional Status Question Answer Note LastModified by Organization D etails LastModified Time What is your exercise level? Moderate Information not available 03/03/2015 Mental Status None recorded. Family History Relationship Description Onset Age of this Age Resolved Age Notes LastModified by Organization Details LastModified Time Mother Diabetes mellitus [email or web address] Not available 02/21 17:25:59 Mother Hyperthyroid ism [email or web address] Not available 02/21 17:25:59 Maternal Grandmother Malignant tumor of ovary [email or web address] Not available 02/21 17:25:59 Maternal Aunt Malignant tumor of ovary [email or web address] Not available 02/21 17:25:59 Maternal Aunt Malignant tumor of ovary [email or web address] Not available 02/21 17:25:59 Notes:thyroid Medical History Condition Response Coronary Artery Disease N Blood Diseases N Kidney Cyst N Hyperthyroidism N Blood Transfusion N MRSA N Blood disorders N Emphysema N COPD N Blood Clots N Depression N Pneumonia N Peripheral Arterial Disease N Premature N Edema N TIA N Headaches/Migraines N Anxiety Disorder N Obesity N Infertility N Polyps N Acid Reflux (GERD) N Hematuria N Stroke N Neck Injury N Polio N Hospital Admission other than N Neurologic Disorder N Other Sleep Disorders N Rheumatoid Arthritis N Fibromyalgia N Abdominal Aortic Aneurysm Repair N Kidney Disease N Heart Conditions N Heart Disease/Heart Problems N Hospitalizations N Brain Tumors N Acne N Eating Disorder N Skin Problems N Constipation N Meningitis N Tuberculosis N Cerebral Palsy N Myocardial Infarction N Asthma N Substance Abuse N Peripheral Vascular Disease N Vertigo N Sleep Disorder N Cirrhosis N Pulmonary Embolism N Chicken Pox N Flomax Use Past or Present N Hematologic Disease N Anxiety/Depression N Thyroid Disease N Colon Cancer N Glaucoma N Lung Disease N Developmental or Behavioral Disorders N Bipolar N Pacemaker N Diverticulitis/Diverticulosis N Anesthesia Complications N Orthopedic Problems N Orthotics N Head Injury/Concussion N Congenital Anomalies N Bain Bite N Chronic Kidney Disease N Endometriosis N Liver Disease N Dialysis N Schizophrenia N Speech Delay N Chronic Obstructive Pulmonary Disease N Parkinson's Disease N Thyroid Problems N GI Problems N Developmental Delay N Anemia N Immune System Disorder N Multiple Sclerosis N Colon Polyps N Heart Attack ([place]) N Diabetes N Cardiomyopathy N Blood Transfusions N Heart Problems/Murmur N Eye Trauma N Congestive Heart Failure (CHF) N Valvular Heart Disease N Hyperlipidemia N Double Vision N Abuse/Domestic Violence N Hepatitis B N Lupus N Epilepsy/Seizures N Reflux/GERD N Aneurysm N Bronchitis N Heart Disease N Hypertension N Pre-Eclampsia N Heart Failure N Other Y Gout N High Blood Pressure N Atrial Fibrillation N Kidney Stones N Head Trauma/Injury N Congenital Heart Disease N Spine Problems N Gastrointestinal Disease N Lung Mass N Sinusitis N Obstructive Sleep Apnea N Muscle, Joint, or Bone Problems N Autoimmune disease N Vision or Eye Problems N Arthritis N Blood Clot N Cancer N Seasonal allergies N Leg or Foot Ulcers N Raynaud's Disease N Aortic Aneurysm N Arrhythmia N Headaches N Heart Problems N [place]bl[place]pia N Ear or Hearing Problems N Hyperparathyroidism N Migraines N Artificial Joints N Kidney or Bladder Problems N NSAID Use N Encephalitis N PTSD N Ulcers N Prostate Hypertrophy N Bleeding Disorder N AIDS/HIV N Urinary Tract Infection N Back Problems N Allergies N Atrial Flutter N GERD/Reflux N Hepatitis N Autism Spectrum Disorder (ASD) N Breast Cancer N Hernia N Hypothyroidism N Breast Problem N Genitourinary Disease N Deep Vein Thrombosis N Varicose Veins N Cystic Fibrosis N Hearing Loss N Developmental Problems N Carotid Disease N Vitamin D Deficiency Y ADHD N Bladder or Kidney Problems N High Cholesterol N [place] N Valvular Abnormalities N Psychiatric/Mental Health Condition N Organ Transplant N Foot Deformity N Allergies/Hayfever N Dyslipidemia N Hyponatremia N Diabetic Eye Disease N Osteoporosis/Osteopenia N Back Pain N Proteinuria N Mental Illness N Neurological Problems N Ovarian Cancer N Bedwetting N Seizures/Epilepsy N Kidney Failure N Ocular trauma N Dementia N Diverticulitis N Sleep Apnea N Mental Problems N Warfarin Management N Osteoporosis N Gynecological History Statement/Question Response Abnormal Pap Y On BCP's at Conception? N STIs/STDs Y HPV Vaccine N Age at Menarche 15 Current Control Method Hysterectom y Age at First Child 17 Sexually Active? Y Menses Monthly N Date of Last Pap Smear 10/29/2017 Sexual Problems? N LMP Unknown Desired Control Method None Obstetrics History GPAL:G 4 P 4 0 0 4 Type Value Multiple Births 0 Full Term 4 Induced 0 Spontaneous 0 Premature 0 Living 4 Ectopics 0 Total 4 Immunizations Vaccine Type Date Status Note Provider Nam e and Address Organization Details Recorded Time Influenza, split virus, trivalent, preservative 5 completed Brendan Winkler [facility] [place] [facility] 03/22/2015 19:19:41 Influenza, split virus, trivalent, preservative 5 completed Not Available [facility] 12/12/2019 02:46:07 Influenza, split virus, quadrivalent, preservative 5 completed Not Available [facility] 12/12/2019 02:40:26 Tdap 5 completed Not Available [facility] 12/12/2019 02:50:31 Past Encounters Encounter ID Performer Location Encounter Start Date Encounter Closed Date Diagnosis/Indication Diagnosis SNOMED-CT Code Diagnosis ICD10 Code Diagnosis Note [id number] Brendan Ha (PERFORMING ARTIST) [address] [place] [address] [id number] 10/18/2014 14:22:26 10/18/2014 16:26:40 Cervicovaginal cytology: Low grade squamous intraepithelial lesion [id number] SHANNON Carpenter (PERFORMING ARTIST) [address] [place] [address] [id number] 11/24/2014 14:26:02 11/27/2014 10:46:19 Cervical intraepithelial neoplasia grade III with severe dysplasia [id number] Brendan Ha (PERFORMING ARTIST) [address] [place] [address] [id number] 03/03/2015 11:12:53 03/03/2015 16:37:01 Pain in pelvis 87190818 Urethritis [id number] Brendan Ha (PERFORMING ARTIST) [address] [place] [address] [id number] 03/15/2015 15:42:09 03/16/2015 14:40:51 detection examination [id number] Dilcia (PERFORMING ARTIST) [address] [place] [address] [id number] 03/22/2015 14:31:54 03/22/2015 16:57:03 detection examination 93999042 Administra tion of influenza vaccine 66287247 Cervical intraepithelial neoplasia grade III with severe dysplasia 330413856 Previous o peration to cervix affecting [id number] Brendan Ha (PERFORMING ARTIST) [address] [place] [address] [id number] 04/08/2015 14:17:33 04/08/2015 15:05:45 [id number] Brendan Ha (PERFORMING ARTIST) [address] [place] [address] [id number] 04/19/2015 14:29:04 04/19/2015 15:33:51 Previous operation to cervix affecting 80887740 Normal [id number] Brendan Ha (PERFORMING ARTIST) [address] [place] [address] [id number] 05/17/2015 11:58:31 05/17/2015 13:05:56 Normal 16717113 Previous o peration to cervix affecting Vitamin D deficiency 10482105 [id number] Brendan Ha (PERFORMING ARTIST) [address] [place] [address] [id number] 06/14/2015 15:38:36 06/14/2015 17:24:27 Normal 51106658 [id number] Brendan Ha (PERFORMING ARTIST) [address] [place] [address] [id number] 07/12/2015 15:31:11 07/12/2015 17:25:34 Carrier of cystic fibrosis gene mutation 451438892 Normal 04467683 Cervical intraepithelial neoplasia grade III with severe dysplasia 830409444 Previous o peration to cervix affecting [id number] Brendan Ha (PERFORMING ARTIST) [address] [place] [address] [id number] 08/09/2015 09:44:31 08/09/2015 10:49:23 Normal 70938678 Previous o peration to cervix affecting Abnormal f etal presentation 00800305 TRANSVERSE use mat belt [id number] Brendan Ha (PERFORMING ARTIST) [address] [place] [address] [id number] 09/06/2015 09:53:21 09/06/2015 11:57:47 Normal 34951469 Z33.1 Previous o peration to cervix affecting 91740784 Z98.89 [id number] Brendan Ha (PERFORMING ARTIST) [address] [place] [address] [id number] 09/20/2015 09:47:58 09/20/2015 11:29:06 Normal 09481719 Z33.1 Previous o peration to cervix affecting 90531771 Z98.89 Premature labor 7378266 O60.03 [id number] Brendan Ha (PERFORMING ARTIST) [address] [place] [address] [id number] 10/04/2015 10:41:03 10/04/2015 12:23:57 Normal 25804752 Z33.1 Previous o peration to cervix affecting 87036862 Z98.89 Premature labor 1372988 O60.03 Smoker 13688141 F17.200 Female sterilization 608 02842 Z30.2 Active or passive immunization 109922617 Z23 [id number] Brendan Ha (PERFORMING ARTIST) [address] [place] [address] [id number] 10/11/2015 10:42:39 10/11/2015 13:29:31 Normal 37880203 Z33.1 Previous o peration to cervix affecting 33882349 Z98.89 Premature labor 0986495 O60.03 Female sterilization 608 43782 Z30.2 [id number] Brendan Ha (PERFORMING ARTIST) [address] [place] [address] [id number] 10/18/2015 10:06:19 10/18/2015 10:54:28 Normal 19224944 Z33.1 Previous o peration to cervix affecting 69170675 Z98.89 [id number] Brendan Ha (PERFORMING ARTIST) [address] [place] [address] [id number] 10/25/2015 09:51:00 10/25/2015 11:40:00 Transient hypertension of 257470226 O13.9 Female sterilization 608 69404 Z30.2 Normal 7284399 2 Z33.1 Previous o peration to cervix affecting 13471846 Z98.89 [id number] Brendan Ha (PERFORMING ARTIST) [address] [place] [address] [id number] 11/02/2015 14:39:23 11/02/2015 16:35:08 Normal 16511350 Z33.1 Carrier of cystic fibrosis gene mutation 200137522 Z14.1 Female sterilization 608 48409 Z30.2 Previous o peration to cervix affecting 64042885 Z98.89 [id number] Brendan Ha (PERFORMING ARTIST) [address] [place] [address] [id number] 11/03/2015 15:51:21 11/03/2015 18:15:04 Normal 65789803 Z33.1 [id number] ROMERO Mccain (PERFORMING ARTIST) [address] [place] [address] [id number] 02/08/2016 15:20:34 02/08/2016 17:21:18 state 96045919 Z39.2 Female sterilization 608 79568 Z30.2 Cervical intraepithelial neoplasia grade III with severe dysplasia 206973931 D06.9 Umbilical hernia 8990207 07 K42.9 Bladder mu scle dysfunction - overactive 649776402 N32.81 care 74978244 8 Z39.2 [id number] SELMA Morales (PERFORMING ARTIST) [address] [place] [address] [id number] 0 02/22/2016 14:42:45 02/22/2016 16:41:18 Abnormal cervical Papanicolaou smear 321766148 R87.612 Cervical intraepithelial neoplasia grade III with severe dysplasia 358237488 D06.9 Cervicovag inal cytology: Low grade squamous intraepithelial lesion 473180883 R87.612 hx CIS and prior LEEP [id number] SELMA Biswas (PERFORMING ARTIST) [address] [place] [address] [id number] 04/29/2017 14:58:30 04/29/2017 17:00:11 Gynecologic examination 50169541 Z01.411 Exposure t o sexually transmissible disorder 588658999 Z20.2 Abnormal c ervical Papanicolaou smear 204524936 R87.612 Family bienvenido nning surveillance 644897523 Z30.09 [id number] Brendan Ha (PERFORMING ARTIST) [address] [place] [address] [id number] 10/29/2017 15:11:23 10/29/2017 17:18:06 Gynecologic examination 64811502 Z01.411 Previous o peration to cervix affecting 31705540 Z98.890 Cervical intraepithelial neoplasia grade III with severe dysplasia 863217032 D06.9 Abnormal c ervical Papanicolaou smear 799258239 R87.619 Deep pain on intercourse 884353192 N94.12 Hx CIN3 s/p LEEP, prior tubal , scar tissue of cervix --needs removal of uterus and cervix Dyspareunia 02980472 N94 .10 [id number] Brendan Ha (PERFORMING ARTIST) [address] [place] [address] [id number] 12/18/2017 09:59:50 12/18/2017 11:27:16 Postoperative visit 526988423 Z09 Postoperat frandy complication 055251068 K95.89 Macular eruption 3193329 05 R21 [id number] Brendan Ha (PERFORMING ARTIST) [address] [place] [address] [id number] 01/20/2018 14:33:11 01/20/2018 15:24:50 Family planning surveillance 987448172 Z30.09 Postoperative visit 1836 68376 Z09 [id number] ABHI OBRIEN (PERFORMING ARTIST) [address] [place] [address] [id number] 09/29/2019 10:04:04 09/30/2019 11:09:42 Bloody nipple discharge 266282833 N64.52 Given pt's history of tenderness and bloody discharge followed by clear discharge, could be subareolar abscess. Physical exam of breast unremarkab le. Will f/u with mammogram to further evaluate. Restless legs 78690442 G 25.81 Previously well controlled with gabapentin , will restart. Advised pt to take 300mg about 2 hours before bed. Mastodynia of right breast [id number] 8057814 N64.4 [id number] ABHI OBRIEN (PERFORMING ARTIST) [address] [place] [address] [id number] 0 12/02/2019 15:38:34 12/03/2019 13:55:37 Abdominal pain 96435880 R10.9 Generalize d. No nephrolith iasis, hydronephr osis, or acute intra-abdo shelton findings on CT. Likely a combinatio n of cholecysti tis and ovarian cyst. I suspect a musculoske letal component as well. Given pt's h/o multiple abdominal surgeries, cannot rule out adhesions. Advised pt to continue taking naproxen as prescribed . Follow up with surgery and reassess pain s/p cholecyste ctomy. Counseled patient on peritoneal signs. RTC with worsening of symptoms, signs of infection. Cholecystitis 41172079 K 81.9 Limit fatty foods. Management per general surgery. Hemorrhagi c cyst of ovary 878774133 N83.209 -per CT report: Right ovary measures 4.1x3.2cm, probably has a hemorrhagi c cyst with some layering proteinace ous fluid.-per US report: right ovary measures 3.4x3.5x3. 2cm and demonstrat es vascular flow. There is no free fluid in the pelvis.Cou nseled pt on ovarian cysts and need for interventi on. Pelvic pain relieved with analgesics . No free fluid in pelvis. Cyst not large or causing torsion. Discussed monitoring clinically . Advised that cysts are often self resolving. If symptoms persist, consider repeat imaging. [id number] ABHI OBRIEN (PERFORMING ARTIST) [address] [place] [address] [id number] 01/12/2020 15:56:14 01/13/2020 13:00:01 Corpus luteum cyst 445739147 N83.11 Functional cyst. Pelvic pain relieved with analgesics . Cyst not large or causing torsion. Discussed monitoring clinically . Advised that cysts are often self resolving within 3 months. If symptoms persist, consider repeat imaging. Will start OCPs to prevent future cysts. History of hematuria [id number] Z87.448 Pt reports excessive urethral bleeding after catheter was removed and moderate blood in urine on follow up appointmen t. No blood or signs of infection on UA today. Advised pt probably due to trauma from catheter removal. RTC if hematuria returns. Candidal intertrigo [id number] B37.2 Health Concerns Section Related Observation LastModified by Organization Detai ls LastModified Time None Recorded Concern Status LastModified by Organization Details LastModified Time None Recorded Advance Directives Directive N: Payers Encounter Date Sequence Insurance Name Policy Number Policy Mancuso Covered Member ID Mancuso Member ID Guarantor Name 12/18/2017 1 [facility] (MEDICAID HMO) [id number] 0003 Linda Nagel [id number] Linda Nagel 01/20/2018 1 [facility] (MEDICAID HMO) [id number] 0003 Linda Nagel [id number] Linda Nagel 09/29/2019 1 [facility] [place] ([place]ID HMO[place] [id number] 0003 Linda Nagel [id number] Linda Nagel 12/02/2019 1 [facility] (MEDICAID HMO) [id number] 0003 Linda Nagel [id number] Linda Nagel 01/12/2020 1 [facility] (MEDICAID HMO) [id number] 0003 Linda Nagel [id number] Linda Nagel Notes Date Note Type Note Provider Name and Address Organization Details Recorded Time 12/18/2017 text/html Post-OpReported bypatient.Associated Symptoms:incision healing well; no fatigue; normal appetite; normal bowel function; no constipation; no nausea; no emesis; pain improving; no pain; no fever; no bleeding; no lower extremity edema/pain; no dysuria/urinary symptoms 32yo CF s/p total hysterectomy on 12/06/17 here for post-op incision check. Patient states that 8 days post-op she developed a pruritic rash around her incision sites which grew to cover her entire upper body, upper extremities, and head. She was seen in the ED on 12/14/17 and started on abx, steriods, and antihistamines. Her rash has since improved and currently covers her abdomen and ears. She denies any tongue swelling, shortness of breath, cough, or fever. GUILLAUME Alves SILinda 12/18/2017 18:11:36 01/20/2018 text/html Post-OpReported bypatient.Associated Symptoms:incision healing well; no fatigue; normal appetite; normal bowel function; no constipation; no nausea; no emesis; pain improving; no pain; no fever; no bleeding; no lower extremity edema/pain; no dysuria/urinary symptoms 32 yo F here for post-op check s/p total hysterectomy on 12/06/17 here for post-op incision check. Patient states that 8 days post-op she developed a pruritic rash around her incision sites which grew to cover her entire upper body, upper extremities, and head. She was seen in the ED on 12/14/17 and started on abx, steriods, and antihistamines. Her rash has since improved and currently covers her abdomen and ears. She denies any tongue swelling, shortness of breath, cough, or fever. Now rash resolved. GUILLAUME Alves SILinda 01/20/2018 15:15:19 09/29/2019 text/html Breast PainRepor obed bypatient.Location:[facility] Onset/Timin-7 days Quality:aching; localized Severity:mild Modifying Factors:touch Associated Symptoms:no fever; no chills; no skin redness; no breast swelling; no arm pain; no arm swelling; no chest pain; no breast lump;nipple discharge(bloody);sor e nipples;malaise 34yo F presents for evaluation of R breast. Pt reports bilateral tender nipples for the last 2-3 months. Over the weekend while she was taking a shower she noticed bloody nipple discharge from the R breast. She had clear nipple discharge yesterday. She endorses tenderness near the nipple. Denies masses, family history of breast cancer, inverted nipple, skin changes, n/v/f. She also reports a feeling of having to move all of her joints at night when she is in bed. She has a h/o restless legs about 4 years ago and states it feels similar to that. ABHI OBRIEN Attn: [address]ing[address] [place], [address], [facility] 09/29/2019 13:58:49 12/02/2019 text/html Abdominal PainReported bypatient.Location:[facility] Q; RUQ; radiating Quality:dull;stabbing Severity:moderate Duration:intermittent Onset/Timing:better Modifying Factors:movement Associated Symptoms:no fever; no chills; no blood in the urine; no heartburn; no shortness of breath 34yo F presents for ER follow-up. Pt presented to ED on 11/27 for R sided abdominal pain x [address] revealed R hemorrhagic ovarian cyst. Patient states pain persists, is dull with occasional stabbing pain. Pain worse with movement and radiates to R flank. Pain relieved with naproxen and tramadol prescribed per ED. Pt presented to ED again today for worsening RUQ pain with radiation to R shoulder and was told she had gallstones with inflammation, was referred to general surgeon. Pt endorses some nausea, denies vomiting, fevers, changes in bowel movements, dysuria, hematuria, frequency. She states she feel some pelvic pressure with urination. She has history of several abdominal surgeries including hernia repair, tubal ligation, and hysterectomy. ABHI OBRIEN Attn: Accounting[address] [facility], [place], [address], [facility] 12/02/2019 19:03:13 01/12/2020 text/html Abdominal PainReported bypatient.Location:[facility] Q Quality:dull Severity:mild Duration:intermittent Onset/Timing:better Modifying Factors:movement Associated Symptoms:no fever; no chills; no heartburn; no shortness of breath;blood in the urine(s/p catheter removal, resolved) 34yo F presents for follow up on R sided abdominal pain. She recently had cholecystectomy and states pain is significantly improved. R hemorrhagic ovarian cyst noted during laprascopic surgery consistent with CT findings. Patient states she still has some RLQ pain with movement which is relieved with naproxen. She denies nausea, vomiting, fevers, changes in bowel movements, dysuria, frequency. ABHI OBRIEN Attn: Accounting[address] , [place], [address], [place] [facility] 01/13/2020 19:02:39 OBGyn Episode Ob Episode Information Episode Created Date Number of Fetuses Patient Bloodtype Patient rh Status Prepregnancy Weight lbs Domestic Partner Domestic Partner Phone Father Name Perl Software Engineer Status 03/03/20 15 1 CLOSED Fetus Data First Name Last Name Admitted to NICU Weight (g) Sex Living Outcome Pediatric Complications Fetus ID Race Codes Race Delivery Type 3061.74 6 F Full Term [id number] Vaginal Chase Calculation Initial Chase Date Initial Exam Date Initial Exam Provider Initial Ultrasound Date Last Menstrual Period Date Ultra Sound Weeks Gestation 0 Eighteen To Twenty Week Chase Update Ultra Sound Date Fundal Height At Umbil Quickening Date Ultra Sound Latest Weeks Gestation Final Chase Confirmed By Final Chase Confirmed Date Final Chase Date Ultra Sound Latest Days Gestation 0 0 Menstrual History Last Menstrual Date Menses Monthly On Bcp Conception Prior Menses Frequency Hcg Plus Date Menarche Onset Age Delivery Information Delivery Date Delivery Type Labor Anesthesia Weeks Gestation Incision Type Labor Labor Length Hrs Delivered By Post Complications Tubal Sterilization Discharge Date Comments 4 Regional-Ep idural 37 false 6 Edelmira Discharge Information Feeding Method Contraceptive Method Maternal HG B and HCT Levels Ob Episode Information Episode Created Date Number of Fetuses Patient Bloodtype Patient rh Status Prepregnancy Weight lbs Domestic Partner Domestic Partner Phone Father Name Perl Software Engineer Status 03/03/20 15 1 CLOSED Fetus Data First Name Last Name Admitted to NICU Weight (g) Sex Living Outcome Pediatric Complications Fetus ID Race Codes Race Delivery Type 3345.24 1 M Full Term [id number] Vaginal Chase Calculation Initial Chase Date Initial Exam Date Initial Exam Provider Initial Ultrasound Date Last Menstrual Period Date Ultra Sound Weeks Gestation 0 Eighteen To Twenty Week Chase Update Ultra Sound Date Fundal Height At Umbil Quickening Date Ultra Sound Latest Weeks Gestation Final Chase Confirmed By Final Chase Confirmed Date Final Chase Date Ultra Sound Latest Days Gestation 0 0 Menstrual History Last Menstrual Date Menses Monthly On Bcp Conception Prior Menses Frequency Hcg Plus Date Menarche Onset Age Delivery Information Delivery Date Delivery Type Labor Anesthesia Weeks Gestation Incision Type Labor Labor Length Hrs Delivered By Post Complications Tubal Sterilization Discharge Date Comments 2 Regional-Ep idural 38 false 18 Murali Discharge Information Feeding Method Contraceptive Method Maternal HG B and HCT Levels Ob Episode Information Episode Created Date Number of Fetuses Patient Bloodtype Patient rh Status Prepregnancy Weight lbs Domestic Partner Domestic Partner Phone Father Name Perl Software Engineer Status 03/03/20 15 1 CLOSED Fetus Data First Name Last Name Admitted to NICU Weight (g) Sex Living Outcome Pediatric Complications Fetus ID Race Codes Race Delivery Type 3288.54 2 F Full Term [id number] Vaginal Chase Calculation Initial Chase Date Initial Exam Date Initial Exam Provider Initial Ultrasound Date Last Menstrual Period Date Ultra Sound Weeks Gestation 0 Eighteen To Twenty Week Chase Update Ultra Sound Date Fundal Height At Umbil Quickening Date Ultra Sound Latest Weeks Gestation Final Chase Confirmed By Final Chase Confirmed Date Final Chase Date Ultra Sound Latest Days Gestation 0 0 Menstrual History Last Menstrual Date Menses Monthly On Bcp Conception Prior Menses Frequency Hcg Plus Date Menarche Onset Age Delivery Information Delivery Date Delivery Type Labor Anesthesia Weeks Gestation Incision Type Labor Labor Length Hrs Delivered By Post Complications Tubal Sterilization Discharge Date Comments 5 [facility]-Ep idural 38 false 4 Jayda Discharge Information Feeding Method Contraceptive Method Maternal HG B and HCT Levels Ob Episode Information Episode Created Date Number of Fetuses Patient Bloodtype Patient rh Status Prepregnancy Weight lbs Domestic Partner Domestic Partner Phone Father Name Perl Software Engineer Status 03/29/20 15 1 O Negative [address] Musa Mohan CLOSED Fetus Data First Name Last Name Admitted to NICU Weight (g) Sex Living Outcome Pediatric Complications Fetus ID Race Codes Race Delivery Type Eric Hill on false 4053.97 85 M true Full Term Perl Software Engineer Dr. Mohan [id number] [id number] White Standard Vaginal Delivery Problems Problem Notes Baby Boy, name is Sergio Vigli, circumcision is YES, bottle feeding, statuary painter is Kimberlee, epidural for pain relief , ppbc is tubal ligation. Papers signed. Lilianalynn [facility] 10/04/2015 Problem Name Start Date End Date Resolution Snomed Code Not e Previous operation to cervix affecting [id number] Vitamin D deficiency [id number] Smoker [id number] pt states stopped smoking @ 10 weeks Sinusitis 50569368 Cervical intraepithelial neoplasia grade III with severe dysplasia 487851214 Premature labor 4397495 Transient hypertension of 135729931 state [id number] Chase Calculation Initial Chase Date Initial Exam Date Initial Exam Provider Initial Ultrasound Date Last Menstrual Period Date Ultra Sound Weeks Gestation 11/13/2015 03/29/2015 03/30/2015 02/08/2015 7 Eighteen To Twenty Week Chase Update Ultra Sound Date Fundal Height At Umbil Quickening Date Ultra Sound Latest Weeks Gestation Final Chase Confirmed By Final Chase Confirmed Date Final Chase Date Ultra Sound Latest Days Gestation 03/30/20 15 7 mwasserman 10/04/2015 015 3 Pre- Flowsheet Flowsheet Date 04/08/2015 Segundo Score Blood Edema Fundus Height Fundus Units Glucose Ketones Leukocytes Nitrite Labor Signs Protein Cervic Dilation Cervic Effacement Cervic Station Type Weight in lbs Pre/Post Dialysis Refused BP Diastolic BP Location Tested BP Systolic BP Type Fetus Heart Rate Present Fetus Movement Comments Flowsheet Date 04/19/2015 Segundo Score Blood Edema Fundus Height Fundus Units Glucose Ketones Leukocytes Nitrite Labor Signs Protein Cervic Dilation Cervic Effacement Cervic Station neg none none negative none neg Type Weight in lbs Pre/Post Dialysis Refused 223.493228345419 BP Diastolic BP Location Tested BP Systolic BP Type 70 124 sitting Fetus Heart Rate Present Fetus Movement Comments stat us document fht success ful 170bpm!!!!!!!!!!!!!!! Flowsheet Date 05/17/2015 Segundo Score Blood Edema Fundus Height Fundus Units Glucose Ketones Leukocytes Nitrite Labor Signs Protein Cervic Dilation Cervic Effacement Cervic Station neg none 14 wks none negative Backpain neg Type Weight in lbs Pre/Post Dialysis Refused 223.869170543719 BP Diastolic BP Location Tested BP Systolic BP Type 70 110 sitting Fetus Heart Rate Present Fetus Movement A No Comments nausea, fatigue, and some lo w back pain. Will need monthly US. Required RhoGam for previous pregnancies. Flowsheet Date 06/14/2015 Segundo Score Blood Edema Fundus Height Fundus Units Glucose Ketones Leukocytes Nitrite Labor Signs Protein Cervic Dilation Cervic Effacement Cervic Station neg none 18 none negative none neg Type Weight in lbs Pre/Post Dialysis Refused 230.720351455260 BP Diastolic BP Location Tested BP Systolic BP Type 74 104 sitting Fetus Heart Rate Present A 152 Present Fetus Movement A Yes Comments quad/cf/us/ mw blue mds pink Flowsheet Date 07/12/2015 Segundo Score Blood Edema Fundus Height Fundus Units Glucose Ketones Leukocytes Nitrite Labor Signs Protein Cervic Dilation Cervic Effacement Cervic Station neg none none negative neg Type Weight in lbs Pre/Post Dialysis Refused 235.357064693948 BP Diastolic BP Location Tested BP Systolic BP Type 72 102 sitting Fetus Heart Rate Present Fetus Movement A Yes Comments both daughters here, FOB nee ds CF CARRIER TESTING before any info at [facility] on 07/26 Flowsheet Date 08/09/2015 Segundo Score Blood Edema Fundus Height Fundus Units Glucose Ketones Leukocytes Nitrite Labor Signs Protein Cervic Dilation Cervic Effacement Cervic Station neg trace 29 cm none negative Pressure neg Type Weight in lbs Pre/Post Dialysis Refused 242.559232138432 BP Diastolic BP Location Tested BP Systolic BP Type 66 106 sitting Fetus Heart Rate Present A 143 Present Fetus Movement A Yes Comments mat belt, 28 wk labs, us Flowsheet Date 09/06/2015 Segundo Score Blood Edema Fundus Height Fundus Units Glucose Ketones Leukocytes Nitrite Labor Signs Protein Cervic Dilation Cervic Effacement Cervic Station trace trace 34 cm none negative Cramping neg Type Weight in lbs Pre/Post Dialysis Refused 251.29032807510 BP Diastolic BP Location Tested BP Systolic BP Type 66 114 sitting Fetus Heart Rate Present A 150 Present Fetus Movement A Yes Comments reports swelling in feet. ed ucated to elevate legs at night and do 1 hr baths at night. instructed to wear maternity belt. Flowsheet Date 09/20/2015 Segundo Score Blood Edema Fundus Height Fundus Units Glucose Ketones Leukocytes Nitrite Labor Signs Protein Cervic Dilation Cervic Effacement Cervic Station neg none 32 wks none negative Cramping trace 0cm 5 0% -3 Type Weight in lbs Pre/Post Dialysis Refused 252.032518405360 BP Diastolic BP Location Tested BP Systolic BP Type 80 102 sitting Fetus Heart Rate Present A 148 Present Fetus Movement A Yes Comments Pt desires tubal sterilizati on, consent signed today. PT sent to LAD for steroids to excelerate lung maturity. Flowsheet Date 10/04/2015 Segundo Score Blood Edema Fundus Height Fundus Units Glucose Ketones Leukocytes Nitrite Labor Signs Protein Cervic Dilation Cervic Effacement Cervic Station trace none 30 cm none negative Cramping trace 0cm 50% -2 Type Weight in lbs Pre/Post Dialysis Refused 255.483418029704 BP Diastolic BP Location Tested BP Systolic BP Type 70 118 sitting Fetus Heart Rate Present A 144 Present Fetus Movement A Yes Comments biophysical 09/03. ultrasoun d cervical length was 3.8cm. continues on procardia, prometrium and pelvic rest. Flowsheet Date 10/11/2015 Segundo Score Blood Edema Fundus Height Fundus Units Glucose Ketones Leukocytes Nitrite Labor Signs Protein Cervic Dilation Cervic Effacement Cervic Station trace 2+ 38 cm 2+ small Uterine Contract ions 1+ 0cm 50% -3 Type Weight in lbs Pre/Post Dialysis Refused 255.994824370564 BP Diastolic BP Location Tested BP Systolic BP Type 74 106 sitting Fetus Heart Rate Present A 154 Present Fetus Movement A Yes Comments Having 6-10 contractions marianela pite procardia and prometrium twice a day, rest and fluidsNo cervical change; watch for SROM, bleeding or contractions getting worse Flowsheet Date 10/18/2015 Segundo Score Blood Edema Fundus Height Fundus Units Glucose Ketones Leukocytes Nitrite Labor Signs Protein Cervic Dilation Cervic Effacement Cervic Station trace 2+ 36 wks none small Uterine Contract ions trace 1cm 70% -3 Type Weight in lbs Pre/Post Dialysis Refused 254.023090500405 BP Diastolic BP Location Tested BP Systolic BP Type 72 112 sitting Fetus Heart Rate Present A 145 Present Fetus Movement A Yes Comments reccurrent contracti ons despite tocolysis, had steroids needs Amniocentesis to determine lung maturity redarding elective delivery despite cervical stenotic Flowsheet Date 10/25/2015 Segundo Score Blood Edema Fundus Height Fundus Units Glucose Ketones Leukocytes Nitrite Labor Signs Protein Cervic Dilation Cervic Effacement Cervic Station 1+ 1+ 37 wks none negative Cramping trace 1cm 7 0% -3 Type Weight in lbs Pre/Post Dialysis Refused 253.054664370476 BP Diastolic BP Location Tested BP Systolic BP Type 92 114 sitting 68 102 sitting Fetus Heart Rate Present A 138 Present Fetus Movement A Yes Comments s/p amniocentesis on 5 at [facility]; L:S 2.2 PG pending; induction of labor scheduled for 10/27 if mature; PP tubal on 10/28 Flowsheet Date 11/02/2015 Segundo Score Blood Edema Fundus Height Fundus Units Glucose Ketones Leukocytes Nitrite Labor Signs Protein Cervic Dilation Cervic Effacement Cervic Station neg none 38 cm none negative none neg 2cm 50% - 2 Type Weight in lbs Pre/Post Dialysis Refused 255.037286042684 BP Diastolic BP Location Tested BP Systolic BP Type 82 124 Fetus Heart Rate Present A 144 Present Fetus Movement A Yes Comments [facility] Flowsheet Date 11/03/2015 Segundo Score Blood Edema Fundus Height Fundus Units Glucose Ketones Leukocytes Nitrite Labor Signs Protein Cervic Dilation Cervic Effacement Cervic Station 1+ 2+ 38 wks none negative Uterine Contract ions neg 2cm 70% -2 Type Weight in lbs Pre/Post Dialysis Refused BP Diastolic BP Location Tested BP Systolic BP Type 85 134 sitting Fetus Heart Rate Present A 134 Present Fetus Movement A Yes Comments to l&d Flowsheet Date 02/08/2016 Segundo Score Blood Edema Fundus Height Fundus Units Glucose Ketones Leukocytes Nitrite Labor Signs Protein Cervic Dilation Cervic Effacement Cervic Station Type Weight in lbs Pre/Post Dialysis Refused 242.682776278922 BP Diastolic BP Location Tested BP Systolic BP Type 82 124 sitting Fetus Heart Rate Present Fetus Movement Comments Menstrual History Last Menstrual Date Menses Monthly On Bcp Conception Prior Menses Frequency Hcg Plus Date Menarche Onset Age 0302/08/2015 true false 28 5 13 Genetic Screening And Infection History Question Response Note Patient's Age Will Be 35 Yea rs Or Older At Estimated Date of Delivery false Thalassemia (Indonesian, Chinese, Mediterranean, Or Background): MCV < 80 false Neural Tube Defect (Meningom yelocele, Spina Bifida, Or Anencephaly) false Congenital Heart Defect false Down Syndrome false Daniel-Sachs (eg, Denominational, Cajun, [place]i-[place] Citizen) f alse Suzan Disease false Sickle Cell Disease Or Trait () false Hemophilia Or Other Blood Disorders false Muscular Dystrophy false Cystic Fibrosis false Reliance's Chorea false Mental Retardation/Autism false If Yes, Was Person Tested For Fragile X? false Other Inherited Genetic Or Chromosomal Disorder false Maternal Metabolic Disorder (eg, Type 1 Diabetes, PKU) false Patient Or Baby's Father Had A Child With Defects Not Listed Above false Recurrent Loss, Or A Stillbirth false Medications (including Suppl ements, Vitamins, Herbs, OTC Drugs), Illicit/Recreational Drugs, Alcohol true prenat vitamins, vit d If Yes, Agent(s) And Strength/Dosage false Any Other Genetic History false Live With Someone With TB Or Exposed To TB false Patient Or Partner Has History Of Genital Herpes false Rash Or Viral Illness Since Last Menstrual Perio d false History Of STD, Gonorrhea, Chlamydia, HPV, Syphi lis false Other Infection History false Plans and Education First Trimester Discussed Date Discussion Item Discussion Note Discuss ed By 04/08/2015 [facility] 04/08/2015 Alcohol [place] [address] 04/08/2015 Intimate partner violence [place] 04/08/2015 [facility] 04/08/2015 Screening for aneuploidy [facility] 04/08/2015 Nutrition counseling ; special diet; dietary precautions (mercury, listeriosis) [place] [address] 04/08/2015 Childbirth classes/hospital facilities [place] [address] 04/08/2015 HIV and other routine tests [facility] 04/08/2015 Risk factors identif ied by history [facility] 04/08/2015 Weight gain counseling [place] [address] 04/08/2015 Exercise [place] [address] 04/08/2015 Teratogens [place] [address] 04/08/2015 Use of any medicatio ns (including supplements, vitamins, herbs, or OTC drugs) [place] [address] 04/08/2015 [place] [address] 04/08/2015 Sexual activity [place] [address] 04/08/2015 Tobacco/smoking cess ation counseling (ask, advise, assess, assist, and arrange) [place] [address] 04/08/2015 Illicit/recreational drugs [place] [address] 04/08/2015 Dental care [place] [address] 04/08/2015 Travel [place] [address] 04/08/2015 Seat belt use [place] [address] 04/08/2015 Indications for ultrasonography [place] [address] 04/08/2015 Avoidance of saunas or hot tubs [place] [address] 04/08/2015 Toxoplasmosis precautions (cats/raw meat) [place] [address] Second Trimester Discussed Date Discussion Item Discussion Note Discuss ed By 11/03/2015 Selecting a care provider [facility] 11/03/[address]/tubal sterilization [facility] 11/03/2015 Depression screening (when indicated) [facility] 11/03/2015 Abnormal lab values [facility] 11/03/2015 Signs and symptoms of labor [facility] 11/03/2015 Intimate partner violence [facility] 11/03/2015 Tobacco/smoking cess ation counseling (ask, advise, assess, assist, and arrange) [facility] Third Trimester Discussed Date Discussion Item Discussion Note Discuss ed By 11/03/2015 Intimate partner violence [facility] 11/03/2015 Anesthesia plans [facility] 11/03/2015 Prospect education (n ewborn screening, jaundice, SIDS/safe sleeping position, car seat) [facility] 11/03/2015 Circumcision [facility] 11/03/2015 Postterm counseling [facility] 11/03/2015 movement monitoring [facility] 11/03/2015 [facility] 11/03/2015 Labor signs [facility] 11/03/2015 depression [facility] 11/03/2015 Family medical leave or disability forms [facility] 11/03/2015 Tobacco/smoking cess ation counseling (ask, advise, assess, assist, and arrange) [facility] 11/03/2015 Trial of labor after (TOLAC) counseling [facility] 11/03/2015 Signs and symptoms of preeclampsia [facility] Delivery Information Delivery Date Delivery Type Labor Anesthesia Weeks Gestation Incision Type Labor Labor Length Hrs Delivered By Post Complications Tubal Sterilization Discharge Date Comments [facility] 24 Brendan Winkler MD None true 11/06/2015 periureth ral and periclito ral laceratio n repair with brito for 2 days pp Discharge Information Feeding Method Contraceptive Method Maternal HG B and HCT Levels Breast PPTL done Ob Episode Information Episode Created Date Number of Fetuses Patient Bloodtype Patient rh Status Prepregnancy Weight lbs Domestic Partner Domestic Partner Phone Father Name Perl Software Engineer Status 02/08/20 16 1 DELETED Chase Calculation Initial Chase Date Initial Exam Date Initial Exam Provider Initial Ultrasound Date Last Menstrual Period Date Ultra Sound Weeks Gestation 0 Eighteen To Twenty Week Chase Update Ultra Sound Date Fundal Height At Umbil Quickening Date Ultra Sound Latest Weeks Gestation Final Chase Confirmed By Final Chase Confirmed Date Final Chase Date Ultra Sound Latest Days Gestation 0 0 Menstrual History Last Menstrual Date Menses Monthly On Bcp Conception Prior Menses Frequency Hcg Plus Date Menarche Onset Age Delivery Information Delivery Date Delivery Type Labor Anesthesia Weeks Gestation Incision Type Labor Labor Length Hrs Delivered By Post Complications Tubal Sterilization Discharge Date Comments 6 [facility]- idural 38 false 11 Sergio Discharge Information Feeding Method Contraceptive Method Maternal HG B and HCT Levels
--- OUTSIDE RECORDS SUMMARY | 2024-12-17 21:25 | XMS_ITS | CONTINUITY OF CARE DOCUMENT ---
Author Name derik more Address Unknown Organization [facility] Address [address] [place] [address] Phone [phone] Care Team Providers Care Clinical Application Consultant Name Role Phone Jiemna Coker MD Unavailable Jayda Peters NP Unavailable TOLUGLENYS SCHAEFER Unavailable [phone] PROBLEMS Condition Status Date Provider Notes Cardiovascular Condition Screening active S elmo Coker MD Personal history of COVID-19 active Jimena Coker MD Sleep apnea active Jimena Coker MD Palpitations active Jimena Coker MD Hypertension active Jimena Coker MD Venous hypertension - unspecified active Glenna Petersen MD Edema - localized active Zurdo Petersen MD ENCOUNTERS Date Type Provider Location Encounter Diag nosis - In-person encounter Office Visit Jimena Coker MD [facility] Cardiovascular Condition Screening - In-person encounter Office Visit Jimena Coker MD [facility] HypertensionPalpitationsSleep apneaPersonal history of COVID-19 - In-person encounter Office Visit Zurdo Petersen MD [facility] - In-person encounter Office Visit Zurdo Petersen MD [facility] Edema - localizedVenous hypertension - unspecified VITAL SIGNS Date Observation Value Provider Body Mass Index (Ratio) 32.57 kg/m2 Shaf elizabet Diaz blood pressure, cuff size large Jessica krishna [place] blood pressure, diastolic 81 mm[Hg] Jessica krishna [place] blood pressure, systolic 122 mm[Hg] Scott rodriguez [place] oxygen saturation, oximetry 99 % Shireen Shilo pulse rate 84 /min Shireen Florecita garcia weight E&M 208 [lb_av] Shireen Piersonmiguel garcia respiratory rate E&M 16 /min Luz cowan Shilo height E&M 67 [in_i] Shireen Florecita garcia weight E&M 196 [lb_av] Kev schumacher Body Mass Index (Ratio) 30.69 kg/m2 Mary Coker MD blood pressure, diastolic 82 mm[Hg] Li nkLogic blood pressure, systolic 123 mm[Hg] Lelia kLogic blood pressure, diastolic 82 mm[Hg] Ca therine Antonio blood pressure, systolic 123 mm[Hg] Cat herine [place] oxygen saturation, oximetry 100 % Radha [place] respiratory rate E&M 16 /min Catheri ne [place] pulse rate 100 /min Radha [place] weight E&M 196 [lb_av] Radha Antonio blood pressure, cuff size regular Ca therine Antonio height E&M 67 [in_i] Radha Antonio Body Mass Index (Ratio) 29.44 kg/m2 Devaughn Petersen MD blood pressure, diastolic 80 mm[Hg] Rh onda Evelyne blood pressure, systolic 128 mm[Hg] Rho ndwilly Stubbs oxygen saturation, oximetry 98 % Gwen Stubbs pulse rate 97 /min Gwen Evelyne blood pressure, cuff size regular Osman Stubbs respiratory rate E&M 18 /min Gwen Stubbs blood pressure, resting Yes Jeremien claribel Evelyne weight E&M 188 [lb_av] Gwen Stubbs height E&M 67 [in_i] Gwen Evelyne Body Mass Index (Ratio) 28.97 kg/m2 Sund eenellie Petersen MD blood pressure, diastolic 75 mm[Hg] Rh eri Evelyne blood pressure, systolic 170 mm[Hg] Rho yanet Evelyne oxygen saturation, oximetry 99 % Gwen Evelyne pulse rate 92 /min Gwen Evelyne blood pressure, resting No Jeremien claribel Evelyne respiratory rate E&M 18 /min Gwen Evelyne blood pressure, cuff size regular Osman hwang Evelyne weight E&M 185 [lb_av] Gwen Evelyne height E&M 67 [in_i] Gwenwilly Stubbs ALLERGIES Allergy Name Onset Date Reaction Criticality Status HYDROCODONE High Criticality active HISTORY OF MEDICATION USE Medication Status Instructions Dates Provider Indications Com ments furosemide 20 mg tablet active TAKE 1 TABLET BY MOUTH EVERY DAY 9 Tani Lasix 20 mg tablet completed Take 1 tablet by mouth once a day 4 - 9 Mago Urrutia ropinirole 2 mg tablet active 1 tablet by mouth every night 4 Zurdonellie Petersen MD phentermine 37.5 mg tablet active 1 tablet once a day 4 Gwen Stubbs SOCIAL HISTORY Date Observation Value Provider number of grandchildren Jimena Coker MD social history E&M Patient yulia walters smokes every day. A lcohol Use - no s rian at home mom Smoking History: P atient currently smokes every day. Jimena Coker MD social history reviewed E&M revi ewed - no changes required Jimena Coker MD smoking status Current every day smoker Jocelin Lao social history E&M Patient yulia walters smokes every day. A lcohol Use - no s rian at home mom Smoking History: P atient currently smokes every day. Jimena Coker MD social history reviewed E&M revi ewed - no changes required Jimena Coker MD smoking status Current every day smoker C eddi Alvarez smoking status Current every day smoker R david Stubbs social history E&M Patient yulia walters smokes every day. A lcohol Use - no Smoking History: P atient currently smokes every day. s rian at home mom Zurdo Petersen MD social history reviewed E&M revi ewed - no changes required Zurdo Petersen MD smoking status Current every day smoker R david Stubbs FAMILY HISTORY Family Member Condition Mother Family History of Th yroid Disease: Mother Family History of Hy pertension: Mother Family History of CV A or Stroke: INSURANCE PROVIDERS Payer name Policy type / Coverage type [facility] constitution party ID BILLS MEDICAID Medicaid [id number] TREATMENT PLAN Date Name Performer [id number],S,S till has some trace edema will give her LASIX 20mg she can try for a month we will see if she has benefit Jimena Coker MD [id number],C,F ew events were noted during the study, however, the amount of the events did not constitute a diagnosis of EVANGELISTA per A ASM guidelines. Jimena Coker MD [id number],C,C onclusions: The reduced MVV in the absence of significant airway obstruction suggests the presence of neuromuscular disease. P ulmonary Function Diagnosis: M ild Neuromuscular Disease R ecommend she gets seen by pulmonary Jimena Coker MD [id number],C,C ONCLUSIONS: 1 . Normal left ventricular systolic function. Normal left ventricular size. Normal left ventricular wall thickness. Normal left v entricular diastolic function. E/E': 5.6 Left ventricular ejection fraction is measured at 60 %. 2 . Normal right ventricular size. Normal right ventricular systolic function. 3 . Trace MR TR LA. Jimena Coker MD [id number],C,E xercise Duration - Functional Aerobic Capacity T otal Exercise Duration: 10:30 A ctivity Status: Sedentary M ET's: 10.3 F AI Sedentary: -23% E quivalent Age Sedentary: 49 Reason(s) for Stopping R max(s) for stopping: symptom limited, patient request, reached target heart rate Interpretation S ymptoms: dyspnea P atient effort: maximal, reached target heart rate Summary and Interpretation 1 . Normal exercise capacity 2 . Normal hemodynamic response to exercise 3 . No diagnostic ST or T changes 4 . No significant arrhythmias 5 . There is no evidence for exercise-induced myocardial ischemia Jimena Coker MD [id number],S,Check home sl eep study. Jimena Coker MD [id number],C,S uspect Afib. Will check 2 week tele. Has thyroid issues in her family, says she's had blood work done yesterday. Jimena Coker MD [id number],S,Had covid 1/2 022. Vaccinated x 1. Jimena Coker MD Cardiology:Still has some trace edema will give her LASIX 20mg she can try for a month we will see if she has benefit Jimena Coker MD Cardiology:Few event s were noted during the study, however, the amount of the events did not constitute a diagnosis of EVANGELISTA per A ASM guidelines. Jimena Coker MD Cardiology:Conclusio ns: The reduced MVV in the absence of significant airway obstruction suggests the presence of neuromuscular disease. P ulmonary Function Diagnosis: M ild Neuromuscular Disease R ecommend she gets seen by pulmonary Jimena Coker MD Cardiology:CONCLUSIO NS: 1 . Normal left ventricular systolic function. Normal left ventricular size. Normal left ventricular wall thickness. Normal left v entricular diastolic function. E/E': 5.6 Left ventricular ejection fraction is measured at 60 %. 2 . Normal right ventricular size. Normal right ventricular systolic function. 3 . Trace MR TR LA. Jimena Coker MD Cardiology:Exercise Duration - Functional Aerobic Capacity T otal Exercise Duration: 10:30 A ctivity Status: Sedentary M ET's: 10.3 F AI Sedentary: -23% E quivalent Age Sedentary: 49 R max(s) for Stopping R max(s) for stopping: symptom limited, patient request, reached target heart rate Interpretation S ymptoms: dyspnea P atient effort: maximal, reached target heart rate Summary and Interpretation 1 . Normal exercise capacity 2 . Normal hemodynamic response to exercise 3 . No diagnostic ST or T changes 4 . No significant arrhythmias 5 . There is no evidence for exercise-induced myocardial ischemia Jimena Coker MD Cardiology:Check home sleep stud y. Jimena Coker MD Cardiology:Suspect A fib. Will check 2 week tele. Has thyroid issues in her family, says she's had blood work done yesterday. Jimena Coker MD Cardiology:Had covid 11/2021. Vac cinated x 1. Jimena Coker MD Cardiology:Her venou s doppler showed no dvt but has b/l venous hypertension. O ptions d/w patient re conservative rx vs venos ablation. She will decide what she would prefer. also advised re risk of needing the veins in future if she were to need bypass srery of any kind. c an try horse chestnut seed extract Zurdobaldo Petersen MD Cardiology:from cvi Zurdobaldo Petersen MD Cardiology:Her venou s doppler showed no dvt but has b/l venous hypertension. O ptions d/w patient re conservative rx vs venos ablation. She will decide what she would prefer. also advised re risk of needing the veins in future if she were to need bypass srery of any kind. Zurdo Petersen MD Cardiology:Patient c omes in for initial evaluation. She has edema and pain in both her les below her knees - worse when layin down. Going on for 3 years. SHe feels that she has to constantly move and has to rub her legs. Edema worsens by being up and around and pain is worst when resting. RLE worse than LLE. No wounds or ulcers . No hx of dvt. SHe has used compression stockings for 2 years and has helped with the edema but has not helped with the pain. Has varicose veins in both legs. sx sound like rls m ay be related to cvi t ry continued compression + reqip c heckl refluix stidy i f does not help ortega d/w pt regarding venous ablaiton Zurdo Petersen MD Cardiology:Patient c omes in for initial evaluation. She has edema and pain in both her les below her knees - worse when layin down. Going on for 3 years. SHe feels that she has to constantly move and has to rub her legs. Edema worsens by being up and around and pain is worst when resting. RLE worse than LLE. No wounds or ulcers . No hx of dvt. SHe has used compression stockings for 2 years and has helped with the edema but has not helped with the pain. Has varicose veins in both legs. sx sound like rls m ay be related to cvi t ry continued compression + reqip c heckl refluix stidy i f does not help ortega d/w pt regarding venous ablaiton Zurdo Petersen MD Date Name DLCO - 63229 FRC - 94975 FVC - 46210 Sleep Study Home Stress Routine Complete Echo Monitor - Telemetry (Mobile Cardiac) Venous Doppler Bilat eral LE - Reflux HISTORY OF PROCEDURES Procedure Date Procedure Name Provider Procedure Notes S tatus EKG Jimena Coker MD compl eted Spirometry Jimena Coker MD compl eted FVC / MVV - 37332 Jimena Coker MD completed FRC - 85849 Jimena Coker MD comp leted SpO2 w/o 6min walk/titration Jimena Coker MD completed SVC - 51241 Jimena Coker MD comp leted DLCO - 39450 Jimena Coker MD com pleted EKG Jimena Coker MD compl eted EKG Zurdo Petersen MD completed
--- OUTSIDE RECORDS SUMMARY | 2024-12-17 21:25 | XMS_ITS | Encounter Summary ---
Author Organization [facility] Address [address] [place] [address] Care Team Providers Care Brim Stitcher Name Role Phone Unknown, Provider Primary Care Provider Unavaila ble Reason for Visit * Reason Onset Date Comments Appointment 06/30/2015 Called patient t o give appointment date and time. Home # said the number or code you are dialing is in correct and the cell # said this phone doesn't receive incoming calls. Made doctors office aware. Encounter Details Date Type Department Care Team (Late st Contact Info) Description 06/30/2015 Telephone [facility] [address] [place] [id number] Debra Cedeño Appointment (Called patient to give appointment date and time. Home # said the number or code you are dialing is in correct and the cell # said this phone doesn't receive incoming calls. Made doctors office aware.) Social History Tobacco Use Types Packs/Day Years Used Date Smoking Tobacco: Never Assessed Sex and Gender Information Value Date Recorded Sex Assigned at Not on file Gender Identity Not on file Sexual Orientation Not on file documented as of this encounter Plan of Treatment Not on file documented as of this encounter Visit Diagnoses Not on filedocumented in this encounter Care Teams Brim Stitcher Relationship Specialty Start Date End Date Unknown, Provider PCP - General 10/24/15 10/25/15 documented as of this encounter
--- NOTE | 2025-01-13 14:58 | P.SLEEP_ITS ---
Sleep Study Date of Study: 12/16/24 Ordering Provider: KikaMagali NP-Princess Interpreting Physician: Reina Bruno, Sleep Study Type: Polysomnogram Height: 1.7 m Weight: 99.79 kg Body Mass Index: 34.4 Neck Circumference (inches): 15 [place]: 10 Reason for Sleep Study snoring, daytime hypersomnia Sleep History The patient is a 39-year-old female that had a sleep study ordered by her three dimensional art instructor for evaluation of sleep apnea. The patient occasionally awakens from sleep short of breath. She rarely awakens at night with heartburn, belching or cough. She occasionally snores but is rarely loud enough that others complain. She frequently has trouble sleeping when she has a cold. She rarely wakes up gasping for air throughout the night. She occasionally has breathing problems at night observed by herself or others. She constantly sweats excessively at night. She rarely has heart palpitations or irregular heartbeats during the night. She rarely falls asleep during the day but never while driving. She denies sleep paralysis, cataplexy and hypnagogic/ hypnopompic hallucinations. She denies having trouble at school or work due to sleepiness. She denies feeling afraid of going to sleep. She rarely has nightmares. She denies dreams. She rarely has thoughts racing through her mind. She rarely feels sad, depressed or anxious. She rarely has muscular tension. She frequently notices parts of her body jerk. She rarely kicks during the night. She constantly has crawling and aching feelings in legs and constantly has leg pain during the night. She rarely grinds her teeth during sleep and rarely awakens with morning jaw pain. She is frequently bothered by pain during the day and constantly awakened by pain during the night. She constantly wakes up feeling stiff in the morning. She constantly wakes up with sore or achy muscles. She rarely wakes up with pain spine and other joints. She goes to bed at 9:30 p.m. on weekdays and at 10:30 p.m. on the weekends. It takes her 30 minutes to fall asleep. She wakes up 4-6 times throughout the night to adjust her position and is able to fall back asleep within a few minutes. She wakes up at 6:30 a.m. weekdays and 8:00 a.m. the weekends. She gets 4-5 hours of sleep per night. She does not stay in bed after waking up in the morning. She currently lives with her boyfriend children. She denies consuming any caffeinated beverages within 2 hours of bedtime. She denies engaging in physical exercise before bedtime. She will watch television before falling asleep. She denies taking naps in afternoon or the evening. She does consume caffeinated beverages throughout the day. She smokes 5 cigarettes per day. She denies alcohol and recreational drug use. [facility] Past Medical History Medical History (Updated 01/13/25 @ 15:05 by Reina Bruno DO) Endometriosis Right ovarian cyst Cervical cancer Kidney infection UTI (urinary tract infection) Inguinal hernia Hypertension only while Surgical History Surgical History H/O: hysterectomy her bowels were twisted, they untwisted during the surgery History of tubal ligation H/O inguinal hernia repair Family History Family History Father Hx laparoscopic cholecystectomy Mother Diabetes mellitus Hypertension Social History Social History Smoking status: Current every day smoker Alcohol intake: never Gender identity (if verbalized by the patient): Female Medications Home Medications ?Medication ?Instructions ?Recorded ?Confirmed ?Type gabapentin 300 mg tablet,extended 300 mg PO QPM 11/27/19 History release 24 hr Sleep Procedure A full night polysomnogram using the MyCare multi-channel system recorded the standard physiologic parameters including EEG, EOG, submentalis EMG, anterior tibialis EMG, EKG, body position, nasal and oral airflow using nasal pressure sensor and thermistor.? Respiratory parameters of chest and abdominal movements were recorded with Respiratory Inductance Plethysmography belts. Oxygen saturation was recorded by pulse oximetry. Video monitoring was also performed. Sleep stages, periodic limb movements, and EEG arousals were scored in 30 second epochs according to the criteria of the AASM Scoring Manual. The Apnea-Hypopnea Index was calculated using CMS guidelines for definition of hypopnea with 4% O2 desaturations while scoring respiratory events. Sleep Architecture The total recording time was 538.1 minutes.? The total sleep time was 467.0 minutes. Sleep latency was 29.3 minutes. REM latency was 129.5 minutes. Sleep efficiency was 86.8%. The patient had 22 awakenings for an awakening index of 2.8. Wake after sleep onset time was 42.0 minutes. The patient spent 46.5 minutes, 10.0% of total sleep time in Stage N1. The patient spent 305.0 minutes, 65.3% in Stage N2. The patient spent 47.5 minutes, 10.2% in Stage N3. The patient spent 68.0 minutes, 14.6% in Stage REM sleep. Respiratory Analysis The patient had 1 obstructive apnea for an overall Apnea Hypopnea Index of 0.1. The REM Apnea Hypopnea Index was 4.4. The NREM Apnea Hypopnea Index was 0.2. The patient had a Central Apnea Hypopnea Index of 0. There was no evidence of Jaguar-Acevedo Respirations. Arousals There were 339 total arousals for an arousal index of 43.6. There were 20 spontaneous arousals for an index of 2.6. There were 7 arousals due to respiratory events for an index of 0.9. There were 301 arousals due to periodic limb movements for an index of 38.7.? There were 10 arousals due to isolated l imb movements for an index of 1.3. Periodic Limb Movements The patient had 24 isolated limb movements with an index of 3.1. The patient had 897 periodic limb movements with an index of 115.2, which is elevated (normal < 15). Patient had a total of 921 limb movements with a total limb movement index of 118.3. Oximetry Data The patient had an average oxygen saturation of 96.0% in sleep with a minimum oxygen saturation of 92.0% and a maximum oxygen saturation of 98.0%. The patient had 0 oxygen desaturations that were 4% or greater resulting in an Oxygen Desaturation Index of 0.? The patient spent 0 minutes of total sleep time with an oxygen saturation below 88%. Snoring Profile Snoring was not present during this study. Cardiac Profile The EKG showed normal sinus rhythm. Sinus arrhythmia was present.?The patient had an average pulse rate of 55.2 bpm with a minimum pulse of rate of 44.0 bpm and a maximum pulse rate of 93.0 bpm.? EEG Profile No signs of seizure activity seen. Assessment and Plan Assessment and Plan (1) PLMD (periodic limb movement disorder): Code(s): G47.61 - Periodic limb movement disorder Status: Acute Assessment and Plan: The patient had an overall AHI of 0.1 with desaturation down to 92%. This is not consistent with sleep disordered breathing. The patient had a significant number of limb movements during the study with the majority being periodic in nature. Approximately 1/3 of the periodic limb movements caused arousals in the patient's sleep. The patient's sleep history is highly suggestive of Restless Leg Syndrome. I recommend that the patient have a serum ferritin drawn for evaluation of iron deficiency anemia. If the patient has a serum ferritin less than 75 ng/mL, I recommend starting a daily iron supplement and a Vitamin C supplement for better absorption. If the serum ferritin is greater than 75 ng/mL, I recommend starting a dopamine agonist and titrating the dose until symptoms resolve. There are nonpharmacological methods to treat limb movements including daily exercise, stretching calf muscles before bed, avoiding excessive amounts of caffeine and alcohol, vitamin B supplementation, magnesium lotion massaged into legs before bed, and use of a weighted blanket. Data The data obtained during this sleep study is adequate for interpretation. Certification This sleep study has been reviewed by a board certified sleep medicine phys ician.
[2025-01-13 15:08] VITALS: BMI 34.4
== END 2024-12-17 06:52 | disposition home or self-care (01) ==
LOC: ANHCSM 07:52
PROVIDERS: PCP Nurse Practitioner Family; Visit Provider Nurse Practitioner
DX: G47.30 Sleep apnea, unspecified (principal); G47.61 Periodic limb movement disorder
CPT/HCPCS: 95810

== ENCOUNTER 2025-08-11 15:22 | Emergency (ER) | payer OTHER, SELFPAY ==
[2025-08-11] VITALS (13 sets, daily range): BP systolic 106–132; BP diastolic 72–85; PULSE 51–77; RESP 18–19; TEMP 36.7; O2SAT 97–100
--- NOTE | ~2025-08-11 | CT_ITS ---
EXAMINATION: CT abdomen pelvis w con DATE: 08/11/2025 17:18 INDICATION: Abdominal pain TECHNIQUE: Computed tomography (CT) of the abdomen and pelvis was performed with 100 mL Omnipaque-350 intravenous contrast. Automated exposure control and iterative reconstruction technique were employed. The dose-length product was 535.47 mGy-cm. COMPARISON: 12/02/2019 FINDINGS: Mild dependent atelectasis in bilateral lower lobes. Heart size is normal. No pericardial or pleural effusion. Focal hepatic steatosis at the ligamentum teres. Gallbladder not visualized and likely surgically absent. Spleen, pancreas, bilateral adrenal glands and kidneys are normal. Bowels including the appendix are normal. Bladder is normal. The uterus is not identified and has likely been surgically resected. No free intraperitoneal gas or fluid. No pathologically enlarged abdominal or pelvic lymphadenopathy. Mild lower thoracic spondylosis. IMPRESSION: 1. No acute intra-abdominal/pelvic process. Reviewed, dictated and finalized at location A.
--- NOTE | 2025-08-11 15:26 | ED_ITS ---
HPI - Abdominal Pain General Chief Complaint: Abdominal Pain Stated Complaint: abdominal pain Time Seen by Provider: 08/11/25 15:26 Source: patient Mode of arrival: ambulatory Limitations: no limitations History of Present Illness HPI narrative: 39 years old white female drove herself to the emergency room complaining of intermittent right abdominal dull aching pain started 3 days ago, today steady, worse with certain position, movement, coughing, better standing and remaining still. Associated with nausea and chills. She denies any fever, vomiting, diarrhea, constipation, urinary symptoms, History cholecystectomy umbilical hernia repair, hysterectomy Patient currently weight loss medicine for the last 12 months. She smokes cigarettes, denies drinking or using drugs Related Data Home Medications ?Medication ?Instructions ?Recorded ?Confirmed ?Last Taken ?Type gabapentin 300 mg tablet,extended 300 mg PO QPM 12/01/19 History release 24 hr Allergies Allergy/AdvReac Type Severity Reaction Status Date / Time hydrocodone Allergy Hives Verified 08/11/25 15:35 [place] Allergy Intermediate Rash Uncoded 08/11/25 15:35 Review of Systems 2 Review of Systems: All systems reviewed & are unremarkable except as noted in HPI and below PMFSH Past Medical History Medical History (Updated 08/11/25 @ 18:43 by Adam Astorga MD) Endometriosis Right ovarian cyst Cervical cancer Kidney infection UTI (urinary tract infection) Inguinal hernia Hypertension only while Surgical History Surgical History H/O: hysterectomy her bowels were twisted, they untwisted during the surgery History of tubal ligation H/O inguinal hernia repair Family History Family History Father Hx laparoscopic cholecystectomy Mother Diabetes mellitus Hypertension Social History Social History Smoking status: Current every day smoker Alcohol intake: never Gender identity (if verbalized by the patient): Female Exam 2 Narrative: General appearance: Well-developed, well-nourished Skin: Normal color Head: Normocephalic, nontraumatic Eyes: Clear conjunctiva ENT: Oropharynx normal, ears normal, nose normal Neck: Supple, nontender Chest and respiratory: Airway patent, no respiratory distress, no accessory muscle use Heart: Regular rate/rhythm Abdomen: Soft, mild tenderness right lower quadrant, no guarding or rebound no organomegaly, quiet bowel sounds Vascular: Normal peripheral pulses, normal capillary refill. Musculoskeletal: Normal range of motion, nontender back Neurologic: Alert and oriented ?3, EXTERMINATOR HELPER is normal as tested, no gross motor deficit Course Vital Signs Vital signs: Vital Signs Temperature 36.7 C 08/11/25 15:26 Pulse Rate 77 08/11/25 15:26 Blood Pressure 132/82 08/11/25 15:26 Pulse Oximetry 99 08/11/25 15:26 Oxygen Delivery Room Air 08/11/25 15:26 Temperature 36.7 C 08/11/25 15: Pulse Rate 51 L 08/11/25 18:31 Respiratory Rate 18 08/11/25 18:31 Blood Pressure 108/79 08/11/25 18:31 Pulse Oximetry 100 08/11/25 18:31 Oxygen Delivery Room Air 08/11/25 15:26 MDM - Abdominal Pain MDM Narrative Medical decision making narrative: Patient presents with right abdominal pain Vital signs are stable Physical examination showing mild tenderness right lower quadrant Differential diagnosis appendicitis, diverticulitis, constipation, urinary tract infection, kidney stone, abdominal wall muscle pain Blood workup today includes CBC, CMP, lipase showed no significant abnormality Urinalysis showed no evidence of infection CT abdomen and pelvis with IV contrast showed no acute abnormality Diagnosis: Abdominal pain, discharged on Bentyl The pt was discharged to home.the pt,s condition upon discharge was fair,education was provided to the pt in reference to the final impression,discharge study results,treatment,prognosis and need for follow up . Differential Diagnosis Differential diagnosis: Likely other (As above) Medical Records Attestation: I reviewed the patient's medical records. Lab Data Attestation: I reviewed the patient's lab results. 08/11/25 15:49 08/11/25 15:49 Labs: Lab Results 08/11/25 08/11/25 Range/Units 15:43 15:49 WBC 6.0 (4.5-10.0) K/mm3 RBC 4.74 (4.2-5.4) M/mm3 Hgb 14.0 (12.0-15.0) g/dL Hct 41.5 (37.0-47.0) % MCV 87.6 (80-100) fl MCH 29.5 (26-34) pg MCHC 33.7 (32-36) g/dl RDW 12.3 (11.5-14.5) % Plt Count 177 (150-375) k/mm3 MPV 9.5 (7.4-10.4) fl Immature Gran % (Auto) 0.2 (0-0.5) % Neut % (Auto) 54.6 (45.5-73.1) % Lymph % (Auto) 31.6 (18.3-44.2) % [place] % (Auto) 10.3 H (2.6-8.5) % Eos % (Auto) 2.8 (0-4.4) % Baso % (Auto) 0.5 (0.2-1.2) % Lymph # (Auto) 1.90 (0.9-3.2) K/mm3 [place] # (Auto) 0.6 (0.1-0.6) K/mm3 Eos # (Auto) 0.2 (0-0.3) K/mm3 Baso # (Auto) 0.0 (0.0-0.1) K/mm3 Abs Immat Gran (auto) 0.01 (0.00-0.031) K/mm3 Absolute Neuts (auto) 3.3 (1.3-6.7) K/mm3 Absolute Nucleated RBC 0.000 (0.0-0.012) K/mm3 Nucleated RBC % 0.0 (0.0-0.2) % Sodium 139 (137-145) mmol/L Potassium 3.7 (3.4-5.0) mmol/L Chloride 106 (98-107) mmol/L Carbon Dioxide 27 (22-30) mmol/L Anion Gap 6 (4-12) mmol/L BUN 14 (7-17) mg/dL Creatinine 0.82 (0.7-1.0) mg/dL Estim Creat Clear Calc 90 ml/min Estimated GFR > 60 (59 - ) Glucose 93 (65-110) mg/dL Calcium 9.0 (8.4-10.2) mg/dL Total Bilirubin 0.7 (0.2-1.3) mg/dL AST 29 (14-36) U/L ALT 22 (6-35) U/L Alkaline Phosphatase 61 (38-126) U/L Total Protein 7.4 (6.3-8.2) g/dL Albumin 4.3 (3.5-5.1) g/dL Lipase 19 L (23-300) U/L Urine Color Dark yellow (Yellow) Urine Appearance Cloudy H (Clear) Urine pH 5.5 (5.0-9.0) Ur Specific [place] 1.033 (1.001-1.035) Urine Protein Trace (Negative) mg/dL Urine Glucose (UA) Negative (Negative) mg/dL Urine Ketones Trace H (Negative) mg/dL Ur Blood (Man) Negative (Negative) Urine Nitrate Negative (Negative) Urine Bilirubin 1+ H (Negative) Urine Urobilinogen 1.0 (<2.0) mg/dL Add Ur Microanalysis Reviewed Leukocyte Esterase Rfl Negative (Negative) ZENAIDA/UL Urine RBC 6-10 H (0-2) /hpf Urine WBC 0-5 (0-3) /hpf Ur Squamous Epith Cells Many H (Few) /hpf Urine Bacteria 2+ H /hpf Urine Casts 0-2 Urine Mucus Present /lpf Imaging Data Radiologist's impression: ITS Impressions Abdomen/Pelvis CT 08/11/25 18:14 IMPRESSION: 1. No acute intra-abdominal/pelvic process. Critical Care Time Critical Care Time Critical Care Time: No Discharge Plan Discharge Clinical Impression: Abdominal pain Patient Disposition: Home Condition: Stable Instructions: Abdominal Pain (ED) Additional Instructions: Return if symptoms are worsening , call your family physician for appointment, take Tylenol as as needed for aches and pain, continue home medications. Patient Language: Northern Irish Prescriptions: New dicyclomine 10 mg capsule 20 mg PO QID Qty: 20 0RF No Action gabapentin 300 mg Tablet Extended Release 24 Hr 300 mg PO QPM Follow-up/Referrals: PHYSICIAN,[facility] [place] [Primary Care Provider, Internal Medicine] Yogi Lubin MD [Physician, Family Practice] - 08/16/25
[2025-08-11] MEDS: SODIUM CHLORIDE 0.9% IV 1,000 ML 999 ML IV CONT (15:55)
[2025-08-11] MEDS: HYDROmorphone HCL INJ (*CRX) 1 MG/ML SYR 0.5 MG IV PUSH (15:56)
[2025-08-11] MEDS: ONDANSETRON INJ 4 MG/2 ML VIAL IV PUSH (15:56)
[2025-08-11 15:57] LABS: Hematocrit 41.5 % (37.0-47.0); Hemoglobin 14.0 g/dL (12.0-15.0); Immature Granulocyte Percent A 0.2 % (0-0.5); Lymphocytes Absolute Auto 1.90 K/mm3 (0.9-3.2); Mean Corpuscular HGB Conc 33.7 g/dl (32-36); Mean Corpuscular Hemoglobin 29.5 pg (26-34); Mean Corpuscular Volume 87.6 fl (80-100); Nucleated Red Blood Cells Absolute Auto 0.000 K/mm3 (0.0-0.012); Nucleated Red Blood Cells Perc 0.0 % (0.0-0.2); Platelet Count Result 177 k/mm3 (150-375); Red Blood Count 4.74 M/mm3 (4.2-5.4); White Blood Count 6.0 K/mm3 (4.5-10.0)
--- OUTSIDE RECORDS SUMMARY | 2025-08-11 16:04 | XMS_ITS | Encounter Summary ---
Author Organization [facility] Address [address] [place] [address] Care Team Providers Care Hair Colorist Name Role Phone Unknown, Provider Primary Care [...] (Late st Contact Info) Description 06/30/2015 Telephone [facility] [address] [place] [id number] Debra Cedeño Appointment (Called patient to give appointment date and time. Home # said the number or code you are dialing is in correct and the cell # said this phone doesn't receive incoming calls. 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
--- OUTSIDE RECORDS SUMMARY | 2025-08-11 16:04 | XMS_ITS | Clinical Summary ---
Author Organization [facility] Address [address] [place] [address] Care Team Providers Care Hand Turner Name Role Phone Unavailable Primary Care Provider Unavailabl e Source Comments [facility],non-owned Affiliates and Associated Physician Practices is amultiple site organization consisting of ambulatory clinics and hospital sitesin [place], [place], [place] and [place]. This disclosure is being madepursuant to the Care Everywhere program and may not contain all information available regarding this patient. 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 Gender Identity Not on file Sexual Orientation Not on file Last Filed Vital Signs Vital Sign Reading Time Taken Comments Blood Pressure 115/70 10/24/2015 10:20 AM DISC PAD GRINDER Pulse 96 10/24/2015 10:20 AM DISC PAD GRINDER Temperature - - Respiratory Rate - - Oxygen Saturation - - Inhaled Oxygen Concentration - - Weight - - Height - - Body Mass Index - - Plan of Treatment Health Maintenance Due Date Last Done Comments HIV SCREENING 2000 HEPATITIS C SCREENING 09/08/2003 DTAP/TDAP/TD VACCINES (1 - Tdap) 2004 HEPATITIS B VACCINE (1 of 3 - 19+ 3-dose series) 2004 HPV VACCINE (1 - 3-dose SCDM series) 2012 DEPRESSION SCREENING 11/25/2024 COVID-19 VACCINE ( - 2023-2 5 season) 2025 INFLUENZA VACCINE (#1) 2025 ZOSTER VACCINE (1 of 2) 2035 HIB VACCINE Aged Out No longer eligi ble based on patient's age to complete this topic MENINGOCOCCAL (Group B) VACC INE SHARED DECISION-MAKING Aged Out No longer eligibl e based on patient's age to complete this topic MENINGOCOCCAL GROUPS A/C/Y/W VACCINE Aged Out No longer eligible b ased on patient's age to complete this topic PNEUMOCOCCAL VACCINE Aged Out No long er eligible based on patient's age to complete this topic Insurance [employer]
[2025-08-11 16:08] LABS: Alanine Aminotransferase 22 U/L (6-35); Albumin Level 4.3 g/dL (3.5-5.1); Alkaline Phosphatase 61 U/L (38-126); Anion Gap 6 mmol/L (4-12); Aspartate Amino Transferase 29 U/L (14-36); Bilirubin,Total 0.7 mg/dL (0.2-1.3); Blood Urea Nitrogen 14 mg/dL (7-17); Calcium 9.0 mg/dL (8.4-10.2); Carbon Dioxide 27 mmol/L (22-30); Chloride 106 mmol/L (98-107); Estimated CRCL calculation 90 ml/min; Estimated Glomerular Filt Rate > 60; Glucose 93 mg/dL (65-110); Lipase 19 U/L (23-300); Potassium 3.7 mmol/L (3.4-5.0); Sodium 139 mmol/L (137-145); Total Protein 7.4 g/dL (6.3-8.2)
[2025-08-11 16:14] LABS: Add Urine Microscopic? YES; Appearance Urine Cloudy (Clear); Glucose Urine UA Negative (Negative); Leukocyte Esterase Ur Negative LEU/UL (Negative); Need Manual Microscopic Reviewed; Nitrate Urine Negative (Negative); Non Pathogenic Casts 0-2; Specific Grav Ur 1.033 (1.001-1.035)
--- OUTSIDE RECORDS SUMMARY | 2025-08-11 16:36 | XMS_ITS | Encounter Summary ---
Author Organization [facility] Address [address] [place] [address] Care Team Providers Care Orthotic/Prosthetic Practitioner Name Role Phone Unknown, Provider Primary Care [...] (Late st Contact Info) Description 06/30/[address] 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
--- OUTSIDE RECORDS SUMMARY | 2025-08-11 16:36 | XMS_ITS | Clinical Summary ---
Author Organization [facility] Address [address] [place] [address] Care Team Providers Care Manager Statistical Name Role Phone Unavailable Primary Care Provider Unavailabl e Source Comments [facility],non-owned Affiliates and Associated Physician Practices is amultiple site organization consisting of ambulatory clinics and hospital sitesin [place], [place], [place] and [place]. This disclosure is being madepursuant to the Care Everywhere program and may not contain all information available regarding this patient. Last updated 18.[facility] [employer] Allergies Active Allergy Reactions Criticality Noted Date [...] on file Legal Sex Female 6:29 AM PENCIL MAKER Gender Identity Not on file Sexual Orientation Not on file Last Filed Vital Signs Vital Sign Reading Time Taken Comments Blood Pressure 115/70 10/24/2015 10:20 AM PENCIL MAKER Pulse 96 10/24/2015 10:20 AM PENCIL MAKER Temperature - - Respiratory Rate - - [...] patient's age to complete this topic Insurance [employer]
== END 2025-08-11 18:58 | disposition home or self-care (01) ==
PROVIDERS: Emergency Provider Emergency Medicine
DX: R10.31 Right lower quadrant pain (principal); F17.210 Nicotine dependence, cigarettes, uncomplicated; Z85.41 Personal history of malignant neoplasm of cervix uteri; Z87.440 Personal history of urinary (tract) infections; Z90.710 Acquired absence of both cervix and uterus; Z90.49 Acquired absence of other specified parts of digestive tract; Z79.899 Other long term (current) drug therapy
CPT/HCPCS: 36415; 74177; 80053; 81001; 83690; 85025; 96361; 96374; 96375; 99284; J1171; J2405; J7030; Q9967